=== PATIENT | female | born 1950 | race Caucasian/White ===

== ENCOUNTER 2016-12-18 18:19 | Inpatient (IN) | payer OTHER ==
[~2016-12-18] VITALS: Ht 161.3 cm; Wt 95.8 kg
[2016-12-18 18:45] VITALS: BP 153/99; PULSE 100; RESP 42; O2SAT 100
[2016-12-18] MEDS ORDERED: 0.9% Sodium Chloride 1,000 ML IV ONE (18:47)
[2016-12-18] MEDS ORDERED: HYDROmorphone 1 mg/mL Inj IVPUSH ONE ×3 (18:50→21:35)
--- NOTE | 2016-12-18 18:50 | ED.REPORT ---
HPI-General Illness Date of Service Dec 18, 2016 ED Provider: Darien Blackburn MD Pt is a 66 y/o female w/ a hx of breast CA s/p recent double mastectomy and reconstruction, hyperlipidemia, presenting to the ED via EMS c/o severe abdominal pain onset about 1 hour prior to arrival. The patient had a double mastectomy November 23 followed by a total reconstructive surgery on December 13 performed at by plastic surgeon Dr. Mcdowell. Yesterday, she tripped over a curb and was experiencing no pain afterwards. Her friends saw her this morning and were concerned about her and brought her to ED for evaluation. She was subsequently discharged. She slept most of the day and woke up with a sore throat and cough. Her forceful cough caused her a snapping/tearing sensation of her left abdomen with radiation to the back followed by persistent severe abdominal pain, nausea, and pleuritic pain. She denies CP, SOB, vomiting, fever , chills. She was given 100 mcg Fentanyl by EMS with no relief. She has no history of DVT or PE. She is prescribed Lovenox but has not started it yet. Nursing Notes Stated Complaint: ABDOMINAL PAIN Chief Complaint: Female Abdominal Pain Nursing Notes Reviewed: Yes Allergies: Coded Allergies: No Known Allergies (Unverified Allergy, Unknown, 09/05/14) General Time Seen by MD: 18:46 Chief Complaint Abdominal pain Hx Obtained From: Patient, EMS Arrived By: Ambulance Sudden in Onset?: Yes Onset Occurred: 1 - 4 hours ago Symptom Duration: Since onset Location: : Abdomen Quality: Painful Severity: Current: Severe Severity: Maximum: Severe Past Medical History Past Medical History Breast cancer s/p double mastectomy Polymyalgia Reports: Hyperlipidemia Past Surgical History Bilateral meniscus repair on knees Shoulder and back surgery Double mastectomy Breast reconstructive surgery Family History Mother had cancer Father had kidney disease Reports: Diabetes mellitus Smoking History Never Smoker Social History Alcohol Use: "Social" Occupation Patient is a [employer] Frequent Browser Ambulatory Status Independent Review of Systems Full Review of Systems Constitutional: Denies: Chills, Fever Ears / Nose / Throat: Reports: Sore throat Respiratory: Reports: Non-productive cough, Pleuritic pain, Denies: Shortness of breath GI: Reports: Abdominal pain, Nausea, Denies: Constipation, Diarrhea, Vomiting Complete sys rev & neg: except as marked. Physical Exam Vital Signs Vital Signs Date Time Temp Pulse Resp B/P Pulse Ox O2 Delivery O2 Flow Rate FiO2 12/18/16 21:45 101 12 126/62 98 Nasal Cannula 2 12/18/16 19:45 36.6 103 17 140/79 96 Nasal Cannula 2 12/18/16 18:45 35.8 100 42 153/99 100 Nasal Cannula Initial VS: Reviewed, Vital signs abnormal Head / Eyes: Atraumatic, Normocephalic, PERRL ENT: Mucous membranes moist, Conjunctiva normal, No scleral icterus Neurologic: Alert, Oriented, Nonfocal Psychiatric: Mood/affect normal, Behavior normal, Normal thought content General/Constitutional: Awake, Alert Distress / Hydration: Positive: Distress moderate Behavior: Positive: Anxious Respiratory / Chest: No rales, No rhonchi, No wheezing, No stridor, No chest wall deformity, No crepitus Tachypneic in the setting of anxiety O2 sat 100% on RA Diffuse chest tenderness Cardiovascular: Regular rhythm, Heart sounds NL, No gallop, No murmurs, No rubs , Cap refill not delayed, Peripheral circulation NL Heart Rate / Rhythm: Positive: Tachycardia Abdomen: Atraumatic, Soft, No guarding, No rebound, No distention Diffuse abdominal tenderness Skin: Atraumatic, Color NL, Dry Extremities cool to touch Healing bilateral breast reconstruction scars as well as healing lower transverse tummy tuck incision, drains present in each incision spot as well as about the lower abdominal incision with clear serosanguinous fluid with no purulence noted Interpretation & Diagnostics Lab Results Interpretation Result Diagram: 12/18/16190112/18/16 190 Test 12/18/16 19:02 12/18/16 19:33 White Blood Count 12.2th/mm3 (3.8-10.1) Red Blood Count 3.45mil/mm3 (3.90-5.20) Hemoglobin 9.7g/dL (12.0-15.6) Hematocrit 30.7% (35.0-46.0) Mean Corpuscular Volume 89.0fL (81-100) Mean Corpuscular Hemoglobin 28.1pg (27.0-35.0) Mean Corpuscular Hemoglobin Concent 31.6% (32.0-37.0) Red Cell Distribution Width 13.7% (12.3-15.4) Platelet Count 332bil/L (150-400) Neutrophils (%) (Auto) 57.7% (40-74) Lymphocytes (%) (Auto) 25.6% (14-46) Monocytes (%) (Auto) 6.9% (4-12) Eosinophils (%) (Auto) 8.4% (0-5) Basophils (%) (Auto) 0.3% (0-3) Prothrombin Time 10.1sec (8.1-12.5) Prothromb Time International Ratio 0.95ratio Sodium Level 143mEq/L (134-144) Potassium Level 3.5mEq/L (3.5-5.2) Chloride Level 103mEq/L (97-108) Carbon Dioxide Level 24mmol/L (18-29) Blood Urea Nitrogen 18mg/dL (8-27) Creatinine 0.58mg/dL (0.57-1.00) Estimat Glomerular Filtration Rate 150mL/min (>59) Glucose Level 127mg/dL (60-99) Lactic Acid Level 2.1mmol/L (0.4-2.0) Calcium Level 9.4mg/dL (8.5-10.1) Total Bilirubin 0.5mg/dL (0.0-1.2) Aspartate Amino Transf (AST/SGOT) 23U/L (0-50) Alanine Aminotransferase (ALT/SGPT) 15U/L (0-32) Alkaline Phosphatase 49U/L (25-165) Troponin T < 0.010ug/L (0.0-0.011) Pro-B-Type Natriuretic Peptide 76.36pg/mL (0-287) Total Protein 6.2g/dL (6.4-8.4) Albumin 3.5g/dL (3.4-5.0) Urine Color Yellow (YELLOW) Urine Appearance Hazy (CLEAR,HAZY) Urine pH 5.5 (5.0-8.0) Urine Specific [place] 1.027 (1.003-1.035) Urine Protein Negativemg/dL (NEG,TRACE) Urine Glucose (UA) Negativemg/dL (NEGATIVE) Urine Ketones Tracemg/dL (NEGATIVE) Urine Occult Blood Moderate (NEGATIVE) Urine Nitrite Negative (NEGATIVE) Urine Bilirubin Negative (NEGATIVE) Urine Urobilinogen Normalmg/dL (NORMAL) Urine Leukocyte Esterase Trace (NEGATIVE) Urine RBC 0-2/hpf (0-2) Urine WBC 6-10/hpf (0-5) Urine Epithelial Cells Moderate/hpf (NONE-MOD) Urine Crystals None seen (NONE SEEN) Urine Bacteria Few/hpf (NONE-FEW) Urine Hyaline Casts None/lpf (NONE) Urine Granular Casts None seen (NONE SEEN) Urine Waxy Casts None seen (NONE SEEN) Urine Red Blood Cell Casts None seen (NONE SEEN) Urine White Blood Cell Casts None seen (NONE SEEN) Urine Mucus None seen (None Seen) Urine Trichomonas None seen (NONE SEEN) Urine Yeast None (NONE SEEN) Urinalysis Comment None Urine Culture Reflexed Indicated ECG Interpretation Time: 19:27 Interpreted by: ED physician Normal ECG Interpretation: Normal ECG w/ rate of... (97), Normal rate, Normal sinus rhythm, No acute ischemic changes, Normal QRS, Normal axis, Normal intervals, Adequate tracing ABG Interpretation ABG Interpretation: DateTimeAnalyzed 19:25:00 -_ pH ____7.578 - 7.350 7.450 pCO2 ___28.6__ -mmHg 35.0 45.0 pO2 ___95.0__ -mmHg 69.0 116 HCO3- ___26.8__ -mmol/L 22.0 26.0 ABE ____5.1__ -mmol/L -2.0 2.0 tHb ____9.4__ -g/dL O2Hb ___96.0__ -% COHb ____1.4__ -% MetHb ____1.1__ -% sO2 ___98.5__ -% FIO2 ___21.0__ -% Drawn By dh - Date/Time Notified____ 19:28:00 -_ Oxygen Device 1 _ROOM AIR - Notified By DH - Notified Whom Bere Oliveira Beck - B 763 -mmHg tO2 ___12.8__ -Vol% Nehemiah test _Positive - Exam Performed by: [facility] pract Exam Interpreted by: ED physician Indication: Respiratory distress X-Ray Chest Interpretation Chest Xray Interpretation: IMPRESSION: No acute process. Dictated by: Viet Appiah M.D. on 12/18/2016 at 19:22 Approved by: Viet Appiah M.D. on 12/18/2016 at 19:23 View: Portable, 1 view Interpretation / Wet Read by: Interpret - Radiologist CT Chest Interpretation IMPRESSION: 1. Subcutaneous emphysema and pneumomediastinum. Findings discussed with Dr. Blackburn on .2.17 and 2105 hrs. 2. No pulmonary embolus. 3. Thyroid nodule. 4. Small hiatal hernia. Dictated by: Viet Appiah M.D. on 12/18/2016 at 21:05 Approved by: Viet Appiah M.D. on 12/18/2016 at 21:11 Study type: CT pulm angiogram Interpretation / Wet Read by: Interpret - Radiologist, Discussed w radiologist Re-Eval/Medical Decision Med Decision/Clinical Course Pt is a 66 y/o female w/ a hx of breast CA s/p recent double mastectomy and reconstruction, hyperlipidemia, presenting to the ED via EMS c/o severe abdominal pain onset about 1 hour prior to arrival. The patient had a double mastectomy November 23 followed by a total reconstructive surgery on December 13 performed at by plastic surgeon Dr. Mcdowell. Yesterday, she tripped over a curb and was experiencing no pain afterwards. Her friends saw her this morning and were concerned about her and brought her to ED for evaluation. She was subsequently discharged. She slept most of the day and woke up with a sore throat and cough. Her forceful cough caused her a snapping/tearing sensation of her left abdomen/chest with radiation to the back followed by persistent severe abdominal pain/chest pain, nausea, and pleuritic chest pain. She denies CP, SOB , vomiting, fever, chills. She was given 100 mcg Fentanyl by EMS with no relief. She has no history of DVT or PE. She is prescribed Lovenox but has not started it yet. Emergency department she is extremely anxious, somewhat tachypnea and nontoxic in appearance. Her initial presentation is concerning for spontaneous pneumothorax or pulmonary embolism. Chest x-ray demonstrate no focal consolidation or obvious pneumothorax. Given the patient's recent surgery I opted to obtain CT angiography of the chest to assess for pulmonary embolism. There is no evidence thereof however she did have evidence of pneumomediastinum which actually fits the clinical picture quite well given that her pain all started in the setting of forceful coughing. CTA chest read as below: 1. Subcutaneous emphysema and pneumomediastinum. Findings discussed with Dr. Blackburn on 12.18.16 and 2105 hrs. 2. No pulmonary embolus. 3. Thyroid nodule. 4. Small hiatal hernia. ABG 19:20: 7.578/29/95.0/26.8/5.1 Labs notable as below: CBC: Leukocytosis of 12.2, HCT of 30 CMP: lactate of 2.1, glucose of 127, otherwise unremarkable Troponin: negative UA: trace leukocytes, 6-10 WBCs, few bacteria, negative nitrites, not entirely convincing for UTI At 20:32: received ED note dated 12/18/16, seen for ground level mechanical fall. Concerned about damage surgical sites. At that time she was not felt to require syncope workup or have any significant head trauma, abdomen was benign, surgical sites were considered to be well perfused without signs of infection, vital signs were normal. She was seen by plastic surgery and was discharged. Discussed findings as above with the patient as well as 6 surgeon educational sign language interpreter Dr. Mojgan Villanueva. This is felt likely unrelated to the patient's recent surgery. Recommend conservative treatment and no intervention at this time. They do not feel that the patient needs to be transferred to the [facility] for management of this condition. They recommend discharge home versus admission here to the hospital for pain management. The patient remained stable and after receiving IV hydromorphone and fluids she reported significant symptomatic improvement though did not feel comfortable being discharged. Patient will be admitted to the hospitalist service for further observation, symptomatic management and reassessment. Transferred in stable condition. From a surgical standpoint and suction drains with moderate amount of serosanguineous fluid. No evidence of acute hemorrhage. Surgical sites appear clean and are healing well. Abdomen benign on examination without any peritonitis or guarding, rigidity. No evidence at this time of acute surgical intra-abdominal process. Time of Eval: 21:27 Re-Evaluation/Progress Note: Pt rechecked. She is no longer tachypneic and is much less anxious. She is in no distress. Her abdominal pain is returning. HR is 110 at rest. Oxygen sat is 100%. Discussed imaging results with patient. Discussed admit vs discharge. She would like to be admitted here for pain management. Consultation #1: Call Returned at: 21:20 Damage Assessor: Agrees with eval, Agrees with plan Note: Case discussed with plastic surgeon educational sign language interpreter for Dr. Mcdowell, Dr. Marifer Sutton. She saw the patient in the ED today and believes she could be discharged if appropriate. Consultation #2: Referral / Consult Name: Leola Donald DO Consulted With: Hospitalist Call Returned at: 21:46 Damage Assessor: Will see patient, Agrees with eval, Agrees with plan, Accepts admit Counseled Regarding: Diagnosis, Lab results, Need for admission Discharge & Departure Primary Impression: Pneumomediastinum Additional Impressions: Abdominal pain Abdominal location: unspecified location Qualified Code: R10.9 - Unspecified abdominal pain History of breast cancer History of breast reconstruction Panic attack Pleuritic chest pain Disposition: ADMITTED TO HOSPITAL Discharge Condition All VS Reviewed: Yes Condition: Stable Referrals: OTHER,PHYSICIAN (PCP) (Family) Crit Care Except Billable Proc Time Spent: 135-164 minutes Services Performed: Patient management by me, Time spent at bedside, Reviewing test results, Reviewing imaging, Discussing patient care, Documentation in record, Time with fam/surrogate Scribe Attestation Portions of this note were transcribed by Sreekanth Anna. I, Dr. Blackburn personally performed the history, physical exam and medical decision-making; I reviewed and confirmed the accuracy of the information in the transcribed note. Signed by Serafin Martinez, 12/18/16 - 1899 Darien Blackburn MD Dec 18, 2016 18:50 SREEKANTH ANNA Dec 18, 2016 18:51
[2016-12-18] MEDS ORDERED: MetoCLOpramide 5 mg/mL 2 mL Inj ONE (19:00)
[2016-12-18] MEDS: MetoCLOpramide 5 mg/mL 2 mL Inj IVPUSH PRN (19:20)
[2016-12-18 19:24] LABS: BASOPHILS % (AUTO) 0.3 % (0-3); EOSINOPHILS % (AUTO) 8.4 % (0-5); MONOCYTES % (AUTO) 6.9 % (4-12); Mean Corpuscular Hemoglobin 28.1 pg (27.0-35.0); NEUTROPHILS % (AUTO) 57.7 % (40-74); Platelet Count 332 bil/L (150-400)
--- NOTE | 2016-12-18 19:24 | DRSVH ---
PROCEDURE: X-RAY CHEST ONE VIEW, PORTABLE ([id number]) INDICATIONS: CP, SOB TECHNIQUE: One view of the chest was acquired. COMPARISON: None. FINDINGS: Surgical changes and devices: Surgical panchito project over the left chest wall and central chest. Lungs and pleura: No pleural effusions or pneumothorax. Lungs are clear. Mediastinum: Mediastinal contours appear normal. Heart size is normal. Bones and chest wall: No suspicious bony lesions. Overlying soft tissues appear unremarkable. IMPRESSION: No acute process. Dictated by: Viet Appiah M.D. on 12/18/2016 at 19:22 Approved by: Viet Appiah M.D. on 12/18/2016 at 19:23
--- NOTE | 2016-12-18 19:29 | ABG ---
DateTimeAnalyzed 19:25:00 -_ pH ____7.578 - 7.350 7.450 pCO2 ___28.6__ -mmHg 35.0 45.0 pO2 ___95.0__ -mmHg 69.0 116 HCO3- ___26.8__ -mmol/L 22.0 26.0 ABE ____5.1__ -mmol/L -2.0 2.0 tHb ____9.4__ -g/dL O2Hb ___96.0__ -% COHb ____1.4__ -% MetHb ____1.1__ -% sO2 ___98.5__ -% FIO2 ___21.0__ -% Drawn By dh - Date/Time Notified____ 19:28:00 -_ Oxygen Device 1 _ROOM AIR - Notified By DH - Notified Whom Dr, [place], [place] - B 763 -mmHg tO2 ___12.8__ -Vol% Nehemiah test _Positive -
[2016-12-18 19:43] LABS: INR 0.95 ratio
[2016-12-18 19:45] VITALS: BP 140/79; PULSE 103; RESP 17; O2SAT 96
[2016-12-18 19:52] LABS: TROPONIN T < 0.010 ug/L (0.0-0.011)
[2016-12-18 20:00] LABS: APPEARANCE,URINE HAZY (CLEAR,HAZY); COLOR,URINE YELLOW (YELLOW); OCCULT BLOOD,URINE MODERATE (NEGATIVE); PH,URINE 5.5 (5.0-8.0); UROBILINOGEN,URINE NORMAL (NORMAL)
--- NOTE | 2016-12-18 21:12 | DRSVH ---
PROCEDURE: CT ANGIO CHEST PULMONARY EMBOLISM ([id number]) INDICATIONS: Shortness of breath, tachypnea, history of recent breast reconstruction surgery. History of recent coughing episode and chest pain. TECHNIQUE: After the administration of intravenous contrast, 2 mm thick sections acquired from the pulmonary api hortencia to the posterior costophrenic angles. 3-dimensional maximum intensity projection (MIP) coronal a nd sagittal reformats were then acquired through the thorax. For radiation dose reduction, the follo wing was used: automated exposure control, adjustment of mA and/or kV according to patient size. COMPARISON: [facility], CR, XR CHEST 1VW (PORTABLE), 12/18/2016, 18:57. FINDINGS: Image quality: Excellent. Pulmonary arteries: Pulmonary arteries are normal in size, and demonstrate no intraluminal filling d efects to suggest central pulmonary embolism. Lungs and pleura: Lungs are clear. No pleural effusions or pneumothorax. Central and peripheral ai rways are patent. Mediastinum: Moderate anterior pneumomediastinum is present. Heart size is normal, without pericardia l effusion. No mediastinal or hilar adenopathy. Thoracic aorta is normal in caliber and enhancement . Esophagus is normal in caliber. There is a small hiatal hernia. Bones and chest wall: Bilateral breast reconstruction has been performed. Surgical drains remain in place. Moderate right and small amount of left chest wall subcutaneous emphysema is present, surround ing the reconstructed breasts. No suspicious bony lesions. Ribs and thoracic spine appear intact thr oughout. Thyroid gland demonstrates a low density nodule within the right lobe posteriorly measuring 16 mm.. No axillary or supraclavicular adenopathy. Abdomen: Visualized upper abdominal solid organs appear normal in the early arterial phase of enhanc ement. IMPRESSION: 1. Subcutaneous emphysema and pneumomediastinum. Findings discussed with Dr. Blackburn on .2.17 and 2105 hrs. 2. No pulmonary embolus. 3. Thyroid nodule. 4. Small hiatal hernia. Dictated by: Viet Appiah M.D. on 12/18/2016 at 21:05 Approved by: Viet Appiah M.D. on 12/18/2016 at 21:11
[2016-12-18 21:45] VITALS: BP 126/62; PULSE 101; RESP 12; O2SAT 98
--- NOTE | 2016-12-18 22:02 | PCM.HPMED ---
Subjective Date of Service Dec 18, 2016 Primary Provider: Admitting Physician: Leola Donald DO Primary Care Physician: Other,Physician Admit Status: From the Emergency Department History of Present Illness: Patient is a 66 y/o female with a history of breast CA s/p recent double mastectomy and reconstruction at the [facility],hypertension, hyperlipidemia, GERD, and depression who presented to the ED via EMS with the complaint of LUQ abdominal pain with radiation to her back and epigastrium that started around 3pm. Associated symptoms include nausea and one episode of vomiting, back pain and pleuritic chest pain. Symptoms aggravated by deep inspiration and without alleviating factors. She endorses a double mastectomy on 11/23/16 followed by a total reconstructive surgery on 12/13/16 performed at by plastic surgeon Dr. Mcdowell. She states that she was seen this morning in [place] for surgical follow up and without abdominal pain at that time. Her follow up was uneventful and she returned home after which she slept most of the day and reports waking with a sore throat and non-productive cough. She states that her abdominal pain was brought on by a forceful cough and was associated with progressive abdominal pain, nausea and pleuritic pain. She denies chest pain, shortness of breath, fever, chills, diarrhea, bloody or dark stool, hematemesis. She reports upper endoscopy approximately 4 years ago that was normal and a negative colonoscopy last year. She has no history of DVT or PE and was prescribed Lovenox but has not started it yet. In the ED she was afebrile with a temperature of 36.6, slightly hypertensive with a BP of 140/79 and tachycardic with a heart rate of 103. SpO2 was 96% on 2L nasal cannula. Labs were significant for a mild leukocytosis (wbc 12.2), anemia with a Hgb/Hct of 9.7/30.7, hyperglycemia with a serum glucose of 127, mildly elevated lactic acid of 2.1 and a negative troponin. UA showing trace leukocytes, 6-10 WBCs, few bacteria, negative nitrites, and sent for culture. CT angio chest revealed subcutaneous emphysema and pneumomediastinum, no pleural effusions or pneumothorax, no pulmonary embolism. Per the ED physician's he reviewed the notes from earlier today which revealed a for benign abdomen and no signs or symptoms of infection. The patient was discussed with the recreation therapist plastic surgeon who evaluated the patient earlier today and felt she could be discharged home. However, due to poor pain control and tachycardia the decision was made to admit the patient under observation for conservative management of pneumomediastinum. Review of Systems: Pertinent positives and negatives as above in history of present illness. Complete review of systems conducted and otherwise negative. Allergies Coded Allergies: No Known Allergies (Unverified Allergy, Unknown, 09/05/14) PMH Breast cancer s/p double mastectomy Polymyalgia Hyperlipidemia Hypertension Depression . Surgical History Cholecystectomy Tonsillectomy Knee arthroscopy, b/l meniscus repair Spinal fusion, lumbar Shoulder surgery Double mastectomy Breast reconstructive surgery . Family History Mother- Diabetes mellitus, cervical cancer, lung cancer Father- Kidney cancer Social History Hx Alcohol Use: Yes (Socially) Hx Substance Use: No Smoking Status: Never Smoker Living Arrangement: with Family Additional Information Patient is a banker for [employer] Exam Vital Signs Vital Sign - Last Date Time Temp Pulse Resp B/P Pulse Ox O2 Delivery O2 Flow Rate FiO2 12/18/16 21:45 101 12 126/62 98 Nasal Cannula 2 12/18/16 19:45 36.6 Exam GENERAL: Alert, oriented x3 female in mild distress secondary to pain, cooperative and communicating appropriately. HEENT: Normocephalic, atraumatic, PERRLA, conjunctiva normal, hearing grossly intact. Oral cavity and pharynx normal. Teeth and gingiva in fair condition. Oral mucosa moist. NECK: Supple, non-tender, no adenopathy, masses, or thyromegaly. LUNGS: Diminished breath sounds, clear to auscultation, no rales, rhonchi, wheezing. Normal respiratory effort, no use of accessory muscles. HEART: RRR with normal S1, S2 without murmur, gallop, or rub heard. BREASTS: s/p recent bilateral reconstruction, surgical incisions well approximated with adequate granulation tissue, scattered ecchymosis, no erythema /purulent discharge. NORMA drain in place w/minimal serosanguineous fluid, diffusely tender, no axillary lymphadenopathy. ABDOMEN: Soft, non-distended, diffusely tender to palpation pat in LUQ, bowel tones present, no masses or organomegaly appreciated. Lower transverse abdominal surgical incision, healing w/o erythema or discharge and right-sided NORMA drain in place. EXTREMITIES: no deformities or significant joint findings. No edema. Peripheral pulses intact. SKIN: normal. NEUROLOGIC: CN II-XII grossly intact. No focal neurologic deficit. Lab and Diagnostics Labs Laboratory Tests Test 12/18/16 19:02 12/18/16 19:33 White Blood Count 12.2th/mm3 (3.8-10.1) Red Blood Count 3.45mil/mm3 (3.90-5.20) Hemoglobin 9.7g/dL (12.0-15.6) Hematocrit 30.7% (35.0-46.0) Mean Corpuscular Volume 89.0fL (81-100) Mean Corpuscular Hemoglobin 28.1pg (27.0-35.0) Mean Corpuscular Hemoglobin Concent 31.6% (32.0-37.0) Red Cell Distribution Width 13.7% (12.3-15.4) Platelet Count 332bil/L (150-400) Neutrophils (%) (Auto) 57.7% (40-74) Lymphocytes (%) (Auto) 25.6% (14-46) Monocytes (%) (Auto) 6.9% (4-12) Eosinophils (%) (Auto) 8.4% (0-5) Basophils (%) (Auto) 0.3% (0-3) Prothrombin Time 10.1sec (8.1-12.5) Prothromb Time International Ratio 0.95ratio Sodium Level 143mEq/L (134-144) Potassium Level 3.5mEq/L (3.5-5.2) Chloride Level 103mEq/L (97-108) Carbon Dioxide Level 24mmol/L (18-29) Blood Urea Nitrogen 18mg/dL (8-27) Creatinine 0.58mg/dL (0.57-1.00) Estimat Glomerular Filtration Rate 150mL/min (>59) Glucose Level 127mg/dL (60-99) Lactic Acid Level 2.1mmol/L (0.4-2.0) Calcium Level 9.4mg/dL (8.5-10.1) Total Bilirubin 0.5mg/dL (0.0-1.2) Aspartate Amino Transf (AST/SGOT) 23U/L (0-50) Alanine Aminotransferase (ALT/SGPT) 15U/L (0-32) Alkaline Phosphatase 49U/L (25-165) Troponin T < 0.010ug/L (0.0-0.011) Pro-B-Type Natriuretic Peptide 76.36pg/mL (0-287) Total Protein 6.2g/dL (6.4-8.4) Albumin 3.5g/dL (3.4-5.0) Urine Color Yellow (YELLOW) Urine Appearance Hazy (CLEAR,HAZY) Urine pH 5.5 (5.0-8.0) Urine Specific [place] 1.027 (1.003-1.035) Urine Protein Negativemg/dL (NEG,TRACE) Urine Glucose (UA) Negativemg/dL (NEGATIVE) Urine Ketones Tracemg/dL (NEGATIVE) Urine Occult Blood Moderate (NEGATIVE) Urine Nitrite Negative (NEGATIVE) Urine Bilirubin Negative (NEGATIVE) Urine Urobilinogen Normalmg/dL (NORMAL) Urine Leukocyte Esterase Trace (NEGATIVE) Urine RBC 0-2/hpf (0-2) Urine WBC 6-10/hpf (0-5) Urine Epithelial Cells Moderate/hpf (NONE-MOD) Urine Crystals None seen (NONE SEEN) Urine Bacteria Few/hpf (NONE-FEW) Urine Hyaline Casts None/lpf (NONE) Urine Granular Casts None seen (NONE SEEN) Urine Waxy Casts None seen (NONE SEEN) Urine Red Blood Cell Casts None seen (NONE SEEN) Urine White Blood Cell Casts None seen (NONE SEEN) Urine Mucus None seen (None Seen) Urine Trichomonas None seen (NONE SEEN) Urine Yeast None (NONE SEEN) Urinalysis Comment None Urine Culture Reflexed Indicated Microbiology 12/18/16 Urine Culture, pending Result Diagram: 12/18/16 1902 12/18/16 1902 X-Rays, CTs and MRIs X-RAY CHEST ONE VIEW, PORTABLE (12/18/16) IMPRESSION: No acute process. Dictated by: Viet Appiah M.D. on 12/18/2016 at 19:22 Approved by: Viet Appiah M.D. on 12/18/2016 at 19:23 CT ANGIO CHEST PULMONARY EMBOLISM (12/18/16) IMPRESSION: 1. Subcutaneous emphysema and pneumomediastinum. Findings discussed with Dr. Blackburn on 12.18.16 and 2105 hrs. 2. No pulmonary embolus. 3. Thyroid nodule. 4. Small hiatal hernia. Dictated by: Viet Appiah M.D. on 12/18/2016 at 21:05 Approved by: Viet Appiah M.D. on 12/18/2016 at 21:11 . 12-lead ECG NSR w/heart rate of 97, no acute ischemic changes. Additional Diagnostics: ABG Interpretation: DateTimeAnalyzed 19:25:00 -_ pH ____7.578 - 7.350 7.450 pCO2 ___28.6__ -mmHg 35.0 45.0 pO2 ___95.0__ -mmHg 69.0 116 HCO3- ___26.8__ -mmol/L 22.0 26.0 ABE ____5.1__ -mmol/L -2.0 2.0 tHb ____9.4__ -g/dL O2Hb ___96.0__ -% COHb ____1.4__ -% MetHb ____1.1__ -% sO2 ___98.5__ -% FIO2 ___21.0__ -% Drawn By dh - Date/Time Notified____ 19:28:00 -_ Oxygen Device 1 _ROOM AIR - Notified By DH - Notified Whom Bere Oliveira Beck - B 763 -mmHg tO2 ___12.8__ -Vol% Nehemiah test _Positive - Assessment & Plan 66 y/o female with a history of breast CA s/p recent double mastectomy and reconstruction at the [facility] who presented to the ED via EMS c /o new onset abdominal pain associated with pleuritic chest pain, nausea and radiating to her back admitted for observation and conservative management after CT angio chest demonstrated subcutaneous emphysema and pneumomediastinum, no pleural effusions or pneumothorax, no pulmonary embolism. 1. Acute pneumomediastinum, present on admission. Active. -Pt is post-operative day #5 from breast reconstructive surgery & post-op day # 25 following double mastectomy. -Pt evaluated at emergency dept by plastic surgeon on-call earlier today and discharged home in stable condition. ED physician spoke with same plastic surgeon who did not feel pneumomediastinum was surgically related and recommended discharge. -May consider GI and pulm consult for further evaluation possible bronch vs EGD -Continue supplemental oxygen -Acetaminophen [id number] PRN -Oxycodone 5-10mg Q6 prn -IV Dilaudid 0.5mg IV q4hr prn for breakthrough pain 2. Abdominal pain, present on admission. Active. -Post-operative day #5 from brodie chaudhary, surgical drain remains in place with minimal serosanguineous fluid. Patient evaluated at emergency dept earlier today with reportedly benign abdominal evaluation. -Surgical incisions are well approximated with adequate granulation tissue and no erythema/purulent drainage. -Clear liquid diet -Consider CT with worsening abdominal pain -CMP in the morning 3. Hx of breast cancer s/p double mastectomy w/ complete reconstruction on , present on admission. Active. -Surgical incisions are well approximated with adequate granulation tissue and no erythema/purulent drainage. Drain in place with minimal serosanguineous fluid. 4. Leukocytosis, unknown chronicity, present on admission. Active. -Patient afebrile, surgical incisions/drains with no signs of infection. WBC slightly elevated on admission at 12.2 without left shift. -Likely acute stress rxn, demargination -CBC in the morning, Blood cx completed 5. Anemia, unknown chronicity, present on admission. Active. -Patient denies known history of anemia. Post-operative day #5 from breast reconstructive surgery at . -Hemodynamically stable with no signs of active bleeding. -Hgb/Hct on admission 9.7/30.7, repeat and in am 6. Tachycardia, present on admission. Improved. -HR low 100s on admission, most likely secondary to pain/anxiety. Improved with rest and pain medication. -Continue pain meds as above. Chronic problems, present on admission, presumed stable: -Hypertension- continue home dosing Lisinopril -Hyperlipidemia- continue home dosing atorvastatin. -Depression- continue home dosing Effexor Patient admitted under observation status with expected length of stay < 2 midnights for severity of present symptoms, complexities of treatment plan and risk for adverse event. Pain Evaluation: Adequate Pain Control GI Prophylaxis: Not indicated VTE Prophylaxis Indicated: Meets Criteria for Anticoag Therapy VTE Prophylaxis: Sub-Q Enoxaparin VTE Mechanical Devices: Intermittant Pneumatic CD Resuscitation Status: CPR: Attempt Resuscitation Attending Statement The patient was seen and examined together with house staff on 12/19/2016 and I agree with the history, exam and plan as outlined in the note above. Monica Garner DO Dec 18, 2016 22:02 Leola Donald DO Dec 19, 2016 00:40
[2016-12-18 22:06] VITALS: BP 119/59; PULSE 105; RESP 12; O2SAT 98
[2016-12-18 22:26] VITALS: BP 132/63; PULSE 100; RESP 21; O2SAT 96
[2016-12-18 22:42] VITALS: BP 149/87; PULSE 104; PULSE 108; RESP 18; O2SAT 100
[2016-12-18] MEDS ORDERED: PANT40TA3 PO (23:01)
[2016-12-18] MEDS ORDERED: LISI40TA PO (23:01)
[2016-12-18] MEDS ORDERED: VENL150T3 PO (23:01)
[2016-12-18] MEDS ORDERED: ATOR40TA69 PO (23:01)
[2016-12-18] MEDS ORDERED: OXYC5TAB72 PO (23:01)
[2016-12-18] MEDS ORDERED: PRD5T PO (23:01)
[2016-12-18] MEDS: Alum-Mag Hydrox-Simeth 30 mL Suspension PO PRN (23:17)
[2016-12-19] VITALS (16 sets, daily range): BP systolic 124–164; BP diastolic 65–90; PULSE 100–122; RESP 18–24; O2SAT 94–100
[2016-12-19] MEDS: Ondansetron 2 mg/mL 2 mL Inj IVPUSH PRN ×5 (00:10→13:30)
[2016-12-19] MEDS: MetoCLOpramide 5 mg/mL 2 mL Inj IVPUSH PRN (01:51)
[2016-12-19] MEDS: HYDROmorphone 0.5 mg/0.5 mL iSecure Syringe IVPUSH PRN ×3 (01:51→10:28)
[2016-12-19] MEDS ORDERED: Lactulose 20 Gm/30 mL 30 mL Syrup PO ONE (05:05)
[2016-12-19 07:10] LABS: BASOPHILS % (AUTO) 0.2 % (0-3); EOSINOPHILS % (AUTO) 0.6 % (0-5); MONOCYTES % (AUTO) 5.9 % (4-12); Mean Corpuscular Hemoglobin 28.3 pg (27.0-35.0); Mean Corpuscular Volume 88.5 fL (81-100); NEUTROPHILS % (AUTO) 83.1 % (40-74); Platelet Count 351 bil/L (150-400)
--- NOTE | 2016-12-19 08:27 | DRSVH ---
PROCEDURE: X-RAY KUB ([id number]) INDICATIONS: abd pain post pls surg TECHNIQUE: One view of the abdomen acquired. COMPARISON: None. FINDINGS: Surgical changes and devices: Surgical clips are present in both breasts, in the right upper quadrant and right lower quadrant/right hemipelvis. Wires and tubing overlying the abdomen and pelvis. Bowel: Dilated small bowel loops measuring up to 4 cm in diameter in the central abdomen. Soft tissues: No suspicious abdominal calcifications. Visualized solid organ contours appear normal in size. Bones: No suspicious bony lesions. IMPRESSION: 1. Dilated small bowel loops are suspect for partial small bowel obstruction. 2. Multiple postoperative changes evident. Dictated by: Refugio Huertas M.D. on 12/19/2016 at 8:23 Approved by: Refugio Huertas M.D. on 12/19/2016 at 8:26
[2016-12-19] MEDS: Heparin 5,000 Unit/mL Inj SUBQ SCH ×3 (10:28→23:37)
[2016-12-19] MEDS: 0.9% Sodium Chloride 1,000 ML IV SCH ×2 (11:51→17:30)
[2016-12-19] MEDS ORDERED: HYDROmorphone 0.5 mg/0.5 mL iSecure Syringe IVPUSH PRN (12:30)
--- NOTE | 2016-12-19 12:35 | PCM.PNMED ---
Subjective Date of Service Dec 19, 2016 Subjective Increased abdomen pain and emesis, dark colored. Minimal chest pain and no dyspnea. No head ache or neck pain. No recent rectal bleeding. Exam Vital Signs Vital Sign - Last Date Time Temp Pulse Resp B/P Pulse Ox O2 Delivery O2 Flow Rate FiO2 12/19/16 10:21 Supplement Oxygen 12/19/16 10:10 36.5 105 18 147/90 98 2.00 Intake and Output 12/18/16 12/18/16 12/19/16 Cumulative From/Thru 15:00 23:00 07:00 12/18/16 18:45 - 12/19/16 06:50 Intake Total 1000 ml 150 ml 1150 ml Output Total 500 ml 1020 ml 1520 ml Balance 500 ml -870 ml -370 ml Intake Oral 150 ml 150 ml IV Total 1000 ml 1000 ml Output Urine Total 500 ml 650 ml 1150 ml Drainage Total 370 ml 370 ml Exam Sedated , uncomfortable. Fluent speech Pale skin Lungs clear Heart regular Abdomen tender, mostly left side No rebound No edema No rash IVs and Medications Medications Reviewed: Medications were reviewed in detail Lab and Diagnostics Result Diagram: 12/19/16 0707 12/19/16 0707 X-Rays, CTs and MRIs X-RAY CHEST ONE VIEW, PORTABLE (12/18/16) IMPRESSION: No acute process. Dictated by: Viet Appiah M.D. on 12/18/2016 at 19:22 Approved by: Viet Appiah M.D. on 12/18/2016 at 19:23 CT ANGIO CHEST PULMONARY EMBOLISM (12/18/16) IMPRESSION: 1. Subcutaneous emphysema and pneumomediastinum. Findings discussed with Dr. Blackburn on 17 and 2105 hrs. 2. No pulmonary embolus. 3. Thyroid nodule. 4. Small hiatal hernia. Dictated by: Viet Appiah M.D. on 12/18/2016 at 21:05 Approved by: Viet Appiah M.D. on 12/18/2016 at 21:11 . 12-lead ECG NSR w/heart rate of 97, no acute ischemic changes. Additional Diagnostics ABG Interpretation: DateTimeAnalyzed 19:25:00 -_ pH ____7.578 - 7.350 7.450 pCO2 ___28.6__ -mmHg 35.0 45.0 pO2 ___95.0__ -mmHg 69.0 116 HCO3- ___26.8__ -mmol/L 22.0 26.0 ABE ____5.1__ -mmol/L -2.0 2.0 tHb ____9.4__ -g/dL O2Hb ___96.0__ -% COHb ____1.4__ -% MetHb ____1.1__ -% sO2 ___98.5__ -% FIO2 ___21.0__ -% Drawn By dh - Date/Time Notified____ 19:28:00 -_ Oxygen Device 1 _ROOM AIR - Notified By DH - Notified Whom Jeff OliveiraMalden, Beck - B 763 -mmHg tO2 ___12.8__ -Vol% Nehemiah test _Positive - Assessment & Plan 66 y/o female with a history of breast CA s/p recent double mastectomy and reconstruction at the [facility] who presented to the ED via EMS c /o new onset abdominal pain associated with pleuritic chest pain, nausea and radiating to her back admitted for observation and conservative management after CT angio chest demonstrated subcutaneous emphysema and pneumomediastinum, no pleural effusions or pneumothorax, no pulmonary embolism. 1. Acute pneumomediastinum, present on admission. Active. -Pt is post-operative day #5 from breast reconstructive surgery & post-op day # 25 following double mastectomy. -Pt evaluated at emergency dept by plastic surgeon on-call earlier today and discharged home in stable condition. ED physician spoke with same plastic surgeon who did not feel pneumomediastinum was surgically related and recommended discharge. -May consider GI and pulm consult for further evaluation possible bronch vs EGD -Continue supplemental oxygen -Acetaminophen [id number] PRN -Oxycodone 5-10mg Q6 prn -IV Dilaudid 0.5mg IV q4hr prn for breakthrough pain Will CT abdomen and pelvis and obtain surgical consult, called at 12:40 PM. 2. Abdominal pain, present on admission. Active. -Post-operative day #5 from brodie chaudhary, surgical drain remains in place with minimal serosanguineous fluid. Patient evaluated at emergency dept earlier today with reportedly benign abdominal evaluation. -Surgical incisions are well approximated with adequate granulation tissue and no erythema/purulent drainage. -Clear liquid diet -Consider CT with worsening abdominal pain -CMP in the morning Air fluid levels and recent TRAM flap. Will obtain surgical consult and CT abdome and pelvis. Will place NGT and suction. R/O perf, SBO. infection. 3. Hx of breast cancer s/p double mastectomy w/ complete reconstruction on , present on admission. Active. -Surgical incisions are well approximated with adequate granulation tissue and no erythema/purulent drainage. Drain in place with minimal serosanguineous fluid. 4. Leukocytosis and lactic acidosis, unknown chronicity, present on admission. Active. -Patient afebrile, surgical incisions/drains with no signs of infection. WBC slightly elevated on admission at 12.2 without left shift. -Likely acute stress rxn, demargination -CBC in the morning, Blood cx completed Serial lactates, IVF (NS at 150/hr), PICC and empiric Zosyn. 5. Anemia, unknown chronicity, present on admission. Active. -Patient denies known history of anemia. Post-operative day #5 from breast reconstructive surgery at . -Hemodynamically stable with no signs of active bleeding. -Hgb/Hct on admission 9.7/30.7, repeat and in am 6. Tachycardia, present on admission. Improved. -HR low 100s on admission, most likely secondary to pain/anxiety. Improved with rest and pain medication. -Continue pain meds as above. Chronic problems, present on admission, presumed stable: -Hypertension- continue home dosing Lisinopril -Hyperlipidemia- continue home dosing atorvastatin. -Depression- continue home dosing Effexor Patient admitted under observation status with expected length of stay < 2 midnights for severity of present symptoms, complexities of treatment plan and risk for adverse event. Pain Evaluation: Adequate Pain Control GI Prophylaxis: Not indicated VTE Prophylaxis: Sub-Q Enoxaparin VTE Mechanical Devices: Intermittant Pneumatic CD Resuscitation Status: CPR: Attempt Resuscitation Time spent 45 min Nehemiah You MD Dec 19, 2016 12:35
[2016-12-19] MEDS ORDERED: Sodium Chloride LOK Flush 10 mL Syringe IVFLUSH PRN (12:45)
--- NOTE | 2016-12-19 13:32 | DRSVH ---
PROCEDURE: X-RAY ABDOMEN WITH ERECT AND/OR DECUBITUS VIEWS ([id number]) INDICATIONS: abdomen pain TECHNIQUE: 2 views of the abdomen were acquired. COMPARISON: [facility], CR, XR KUB, 12/19/2016, 4:23. FINDINGS: Surgical changes and devices: There are multiple surgical clips redemonstrated in the abdomen and pel vis. Surgical clips also demonstrated within the visualized left hemithorax. Bowel: No pneumoperitoneum. There are dilated small bowel loops redemonstrated measuring up to appr oximately 4 cm with air-fluid levels. A paucity of gas is noted distally in the colon. Soft tissues: No suspicious abdominal calcifications. Bones: No suspicious bony abnormalities. IMPRESSION: 1. Dilated small bowel loops with air-fluid levels redemonstrated suspicious for small bowel obstruc tion. 2. No evidence of pneumoperitoneum. Dictated by: Ray Lindquist M.D. on 12/19/2016 at 13:02 Approved by: Ray Lindquist M.D. on 12/19/2016 at 13:30
--- NOTE | 2016-12-19 15:25 | DRSVH ---
PROCEDURE: CT ABDOMEN AND PELVIS WITH CONTRAST ([id number]) INDICATIONS: abdomen pain TECHNIQUE: After the administration of oral and intravenous contrast, 5 mm thick sections acquired from the diap hragms to the symphysis. 5 mm thick coronal and sagittal reformats were performed. For radiation do se reduction, the following was used: automated exposure control, adjustment of mA and/or kV accordi ng to patient size. COMPARISON: CTA chest 12/18/2016. FINDINGS: Image quality: Excellent. ABDOMEN: Lung bases: There is pneumomediastinum in the right anterior region. Subcutaneous emphysema in the ri ght pectoralis and dissecting medial and anterior to the right breast reconstruction. In the lower me diastinum, there is reflux of oral contrast from the stomach into the distal esophagus around the ind welling NG tube. Solid organs: Liver and spleen are normal in size and enhancement. A subcentimeter hypodensity is pr esent in the posterior subcapsular spleen. Gallbladder is surgically absent. Biliary system is non-d ilated. Pancreas enhances normally. No adrenal nodules. Kidneys are normal in size and enhancement , without hydronephrosis. In the anterior upper pole of the left kidney is a complex 1.9 cm cystic ma ss appearing to have a solid component. Peritoneum and bowel: Small bowel dilatation is present up to 3 cm in diameter. Transition appears to correlate with the ne ck of the left ventral hernia. The colon is decompressed, uncomplicated sigmoid diverticulosis. Nodes and vessels: No retroperitoneal or mesenteric adenopathy. Aorta and inferior vena cava are no rmal in caliber. Miscellaneous: There is deformity of the anterior abdominal wall, a large left ventral hernia contain ing loops of non-distended bowel with a right to left subcutaneous catheter extending through the gómez tral margin of the hernia. Postoperative clips over the right anterior abdominal wall. PELVIS: Genitourinary: Bladder is collapsed around a Dickey catheter with a moderate amount of intraluminal a ir present. Uterus appears atrophic with a 1.4 cm hypodense filling defect in the lower uterine segme nt, fibroid versus nabothian cyst. Miscellaneous: No inguinal hernias or adenopathy. Bones: No suspicious bony lesions. No vertebral body compression fractures. IMPRESSION: 1. Postoperative changes of breast reconstruction as previously described. Persistent but improved pn eumomediastinum and subcutaneous air around the right breast reconstruction. Postoperative deformitie s of the anterior bowel wall. 2. Large mouth left lower quadrant ventral hernia containing bowel which appears to be causing partia l small bowel obstruction, possibly associated with torsion. 3. 2 cm mass lesion in the anterior upper pole of the left kidney is of concern for possible renal ce ll carcinoma. CT abdomen with renal protocol suggested when clinically feasible. 4. Status post cholecystectomy. 5. Uncomplicated sigmoid diverticulosis. Findings called to Dr. Bobby You 1515 hrs. on 12/19/2016. Findings also reviewed with Dr. Cuevas in rson. Dictated by: Refugio Huertas M.D. on 12/19/2016 at 14:58 Approved by: Refugio Huertas M.D. on 12/19/2016 at 15:23
--- NOTE | 2016-12-19 15:48 | CONS ---
[address] [address] CONSULTATION REPORT PATIENT: DAYSI HORVATH : 1950 MR#: [id number] ADMIT: 12/18/2016 JOB ID: [id number] DATE OF SERVICE: 12/19/2016 The patient is seen in urgent consultation at the request of Dr. Bryant regarding further evaluation and management of abdominal pain. HISTORY OF PRESENT ILLNESS: The patient is a 66-year-old woman with a history of breast cancer for which she underwent double mastectomy on November 23, followed by a bilateral NADER flap reconstruction, performed by Dr. Mcdowell at the [facility] on December 13, 2016. That procedure was complicated by a pneumothorax which was observed without intervention. The patient was then discharged home a few days ago. Yesterday, the patient tells me that she coughed and then experienced acute onset left lower quadrant abdominal pain. She describes the pain as intense and constant. This prompted her to come to the emergency department where she was found to have a mild leukocytosis of 12.2 and a lactic acid of 2.1. For reasons that are unclear to me, a CT angiogram of the chest was obtained but no scan of the abdomen. This demonstrated subcutaneous emphysema around the flap reconstruction, predominantly on the right side, as well as some pneumomediastinum. The patient was admitted to the hospitalist service and has been monitored overnight. This morning, her white blood cell count has climbed to 13.5, and her lactic acid has also climbed to 2.4. She has become progressively tachycardic currently with a heart rate in the one-teens to 120s. She also complains of intensity of her upper abdominal pain. I was therefore urgently consulted and asked to see her. Because of the patient's pain, she is unable to provide only limited history. I did ask our plastic surgeon, Dr. Stiven Brownlee, to come by and see her, and together we called her plastic surgeon at the [facility], Dr. Mcdowell, and discussed the case. PAST MEDICAL HISTORY: 1. Breast cancer. 2. Polymyalgia. 3. Hyperlipidemia. 4. Hypertension. 5. Depression. PAST SURGICAL HISTORY: 1. Open cholecystectomy in the 1980s. 2. Tonsillectomy. 3. Knee arthroscopy. 4. Spinal fusion. 5. Shoulder surgery. 6. Reconstructive surgery as per HPI. MEDICATIONS: Current medications are reviewed in the computer. ALLERGIES: She has no known drug allergies. FAMILY HISTORY: Family history is reviewed and significant for diabetes, lung cancer, and kidney cancer. SOCIAL HISTORY: She is a never smoker. She lives locally. She occasionally drinks alcohol. REVIEW OF SYSTEMS: Full review of systems is limited due to the patient's pain. However, she suggests that she is having abdominal pain as well as nausea and vomiting but no other new symptoms. She tells me that this all began acutely with the coughing episode yesterday, and prior to that, she was feeling fine. PHYSICAL EXAMINATION: Vital signs: She is currently tachycardic in the 120s. Her blood pressure is okay in 150s to 160s over 80s. Her oxygen saturation is 98% on 2 L nasal cannula. She has a respiratory rate of 18 breaths per minute. In general, she appears uncomfortable and slightly sedated, though arousable. Cardiovascular: She has a regular sinus tachycardia. Pulmonary: Lungs are clear to auscultation bilaterally. Vascular: She has no carotid bruit. Neck: She has no thyromegaly. Chest: Her bilateral flaps are inspected. They appear healthy and viable with good capillary reperfusion. There is a lot of ecchymosis but no erythema and no induration. She has NORMA drains bilaterally, both with clear serous output. Her abdomen is obese and significantly tender, particularly in the left lower quadrant. She has a well-healed cholecystectomy scar which is now in the right mid to lower abdomen. She has a transverse lower abdominal incision which appears intact without erythema. She has bilateral NORMA drains coming out the lateral aspects of this, both with thin, clear, serous fluid. Extremities are warm, without significant edema. Neuro is grossly intact. LABORATORIES: Her white blood cell count this morning is 13.5. Her hematocrit is 32.2. Her platelet count is 351. Her creatinine 0.54, her sodium is 138. Her glucose was 174. Her lactic acid has slowly been climbing, most recently up to 2.4. IMAGING: CT scan of the chest was personally reviewed and demonstrates air, particularly around the right breast flap and some pneumomediastinum, all consistent with her recent history of a bilateral NADER flap reconstruction complicated by pneumothorax. ASSESSMENT AND PLAN: This is a 66-year-old female with a recent breast reconstruction at the [facility] admitted with acute onset abdominal pain with a climbing lactic acidosis. I reviewed the case with our plastic surgeon, Dr. Stiven Brownlee, and we also talked with her primary surgeon down at the [facility]. Initially, I was concerned about the possibility of a necrotizing soft tissue infection, especially one with flaps, given the presence of air. However, after the conversation with the plastic surgeons, I am less concerned about this. Per them, it is not unexpected to have residual air and she did have a dissection for the vascular anastomosis within the mediastinum. Also, the fact that she had a pneumothorax suggests further etiology for ongoing pneumomediastinum and air around the flap. That being said, she continues to have significant abdominal pain, tachycardia, and the lactic acidosis. At this point, I recommend urgent CT scan of the abdomen to assess for the possibility of some kind of fascial tear with a hernia. This seems like the most plausible etiology for her current symptoms. I also recommend immediate initiation of broad-spectrum antibiotics. I will follow up on the CT scan and formulate a plan accordingly.
[2016-12-19] MEDS ORDERED: Lactated Ringer's 1,000 ML IV ONE ×2 (15:50→16:30)
--- NOTE | 2016-12-19 16:47 | PCM.HPANE ---
Patient Data Date of Service: Dec 19, 2016 Surgeon Admitting Provider:Leola Donald DO Attending Provider:Leola Donald DO Primary Care Physician:Other,Physician Other Provider: Reason for Visit Pneumomediastinum Post Op Pain Ht/WT & BMI Height (Feet): 5 Height (Inches): 3.50 Weight (Kilograms): 99.100 Body Mass Index 38.23 Allergies Coded Allergies: No Known Allergies (Unverified Allergy, Unknown, 09/05/14) Past Anesthesia History Anesthesia History: Denies:: Anesthesia Reactions Diabetes History Hx Diabetes?: No MRSA MRSA: No Medications Hypertension Medication: Yes Home Meds Incl Beta King: No Reported Medications Lisinopril 40 Mg [id number] Mg PO DAILY #90 12/18/16 Atorvastatin Calcium 40 Mg [id number] Mg PO HS #45 12/18/[address] 40 Mg Tablet.dr40 Mg PO BID #180 12/18/16 Venlafaxine ER 150 Mg Tab.[id number] Mg PO DAILY #90 12/18/16 Prednisone (PredniSONE)5 Mg Tab5 Mg PO BID #60 12/18/16 oxyCODONE 5 Mg Gmbfrt09 Mg PO QID PRN For Pain #60 12/18/16 History History of ENT Problems?: No Hx of Heart Problems?: Yes Cardiovascular History: Positive for:: Hypertension (takes lisinopril) Denies:: Cardiac Surgery Chest Pain Congestive Heart Failure Edema Heart Murmur Irregular Heartbeat Pacemaker Thrombophlebitis Hx of Respiratory Problem?: No Respiratory History: Denies:: Tuberculosis Hx Neurologic Problems?: No Neurological History: Denies:: Alzheimer's Disease CVA Dementia Dizziness Headaches Parkinson's Disease Seizures Other Neurological Pertinent: reports hx of Polymyalgia Hx of GI Problems?: Yes Gastrointestinal History: Positive for:: Gastroesphageal Reflux Heartburn Denies:: Diverticulitis Gastrointestinal Bleeding Hepatitis Hiatal Hernia Rectal Bleeding Other History/Comment small bowel obstruction Hx of Problems?: No Other History/Comment burroughs present Female Hx: Positive for:: Problems with Breasts? (breast CA with B mastectomy and reconst. on 12/13/16) Denies:: Currently Endometriosis Pelvic Inflammatory Hx Musculoskeletal Problems?: No Hx of Psycho/Social Problems?: Yes Psycho Social History: Positive for:: Anxiety Denies:: Bipolar Disorder Hx Depression Suicide Attempt Hx Surgeries?: Yes Hx Any Other Health Problems?: No Other History: Positive for:: Cancer (breast CA with recent surgery) Hospitalization Denies:: Thyroid Disease History Blood Transfusions: Positive for:: Accept Blood Products? Denies:: Blood Transfuse Reaction Blood Transfusions Hx Diabetes: No Other Pertinent History: Bilateral mastectomy with flap reconstruction 12/13/16 Hx Alcohol Use: Yes (very rarely)Hx Substance Use: No Smoking Status: Never Smoker Stop/Bang Treated for Sleep Apnea?: No Do You Have a CPAP Machine?: No S-Snoring: Do You Snore Loudly: No T-Tired: feel tired, fatigued: No O-Obsered: Observed not breath: No P-Blood Pressure: treated: Yes B- Body Mass Index > 35 kg/m2: Yes A- Age over 50: Yes N- Neck Large Circumference: No G- Gender Male: No ROSHAN Total Score: 3 ROSHAN Risk Assessment: Low Risk, <3 Yes Risk Assessment Category Category 1A: Patient has history of documented sleep apnea, and HAS NOT received any narcotic, sedative or anesthesia administration during this stay. Category 1B: Patient has history of documented sleep apnea, and HAS received any narcotic , sedative or anesthesia administration during this stay Category 2: Patient has SUSPECTED Obstructive Sleep Apnea, and HAS received any narcotic , sedative or anesthesia administration during this stay. Category 3: Patient has SUSPECTED Obstructive Sleep Apnea and HAS NOT received narcotic, sedative or anesthesia administration during this stay. Category 4: Outpatient in Procedural Areas with known sleep apnea or who screen positive for High Risk via the STOP/BANG questionnaire. Exam Exam Vital Signs Vital Signs Date Time Temp Pulse Resp B/P Pulse Ox O2 Delivery O2 Flow Rate FiO2 12/19/16 13:00 Supplement Oxygen 12/19/16 12:52 113 18 164/83 98 Nasal Cannula 2.00 12/19/16 12:27 24 Nasal Cannula 2.50 12/19/16 10:21 Supplement Oxygen 12/19/16 10:10 36.5 105 18 147/90 98 Nasal Cannula 2.00 12/19/16 08:51 119 General Appearance: Severe Distress HEENT/AIRWAY: MP 1 Lungs: Clear to Auscultation Heart: Exam Unremarkable Meds/Labs/Diagnostics Admission Meds Current Medications Sodium Chloride (Normal Saline) 1,000 ml @ 0 mls/hr Q0M ONCE IV Last administered on 12/18/16 19:13; Start 12/18/16 at 18:47; Stop 12/18/16 at 18:49; Status DC Hydromorphone HCl (Dilaudid Inj) 1 mg ONCE ONCE IVPUSH Last administered on 19:12; Start 12/18/16 at 18:50; Stop 12/18/16 at 18:51; Status DC Hydromorphone HCl (Dilaudid Inj) 1 mg ONCE ONCE IVPUSH Last administered on 20:35; Start 12/18/16 at 20:30; Stop 12/18/16 at 20:31; Status DC Hydromorphone HCl (Dilaudid Inj) 1 mg ONCE ONCE IVPUSH Last administered on 23:18; Start 12/18/16 at 21:35; Stop 12/18/16 at 21:36; Status DC Lorazepam (Ativan Inj) 1 mg ONCE ONCE IVPUSH Last administered on 12/19/16 00: 36; Start 12/19/16 at 00:25; Stop 12/19/16 at 00:32; Status DC Lactulose (Cephulac) 10 gm ONCE ONCE PO Last administered on 12/19/16 05:04; Start 12/19/16 at 05:05; Stop 12/19/16 at 05:06; Status DC Heparin Sodium (Porcine) 5000 unit 5,000 unit Q8 SUBQ Last administered on 10:28; Start 12/19/16 at 08:30 Sodium Chloride (Normal Saline) 1,000 ml @ 150 mls/hr Q6H40M IV Last administered on 12/19/16 11:51; Start 12/19/16 at 10:50 Cefazolin Sodium 2 gm 2 gm STK-MED ONCE IVPUSH Last administered on 12/19/16 16 :20; Start 12/19/16 at 16:20; Stop 12/19/16 at 16:41; Status DC Lactated Ringer's (Lr) 1,000 ml @ ud STK-MED ONCE IV Last administered on 15:50; Start 12/19/16 at 15:50; Stop 12/19/16 at 16:40; Status DC Labs Test 12/18/16 19:02 4/2/17 19:33 12/19/16 07:07 12/19/16 11:41 Prothrombin Time 10.1sec (8.1-12.5) Prothromb Time International Ratio 0.95ratio Troponin T < 0.010ug/L (0.0-0.011) Pro-B-Type Natriuretic Peptide 76.36pg/mL (0-287) Urine Color Yellow (YELLOW) Urine Appearance Hazy (CLEAR,HAZY) Urine pH 5.5 (5.0-8.0) Urine Specific Bradley 1.027 (1.003-1.035) Urine Protein Negativemg/dL (NEG,TRACE) Urine Glucose (UA) Negativemg/dL (NEGATIVE) Urine Ketones Tracemg/dL (NEGATIVE) Urine Occult Blood Moderate (NEGATIVE) Urine Nitrite Negative (NEGATIVE) Urine Bilirubin Negative (NEGATIVE) Urine Urobilinogen Normalmg/dL (NORMAL) Urine Leukocyte Esterase Trace (NEGATIVE) Urine RBC 0-2/hpf (0-2) Urine WBC 6-10/hpf (0-5) Urine Epithelial Cells Moderate/hpf (NONE-MOD) Urine Crystals None seen (NONE SEEN) Urine Bacteria Few/hpf (NONE-FEW) Urine Hyaline Casts None/lpf (NONE) Urine Granular Casts None seen (NONE SEEN) Urine Waxy Casts None seen (NONE SEEN) Urine Red Blood Cell Casts None seen (NONE SEEN) Urine White Blood Cell Casts None seen (NONE SEEN) Urine Mucus None seen (None Seen) Urine Trichomonas None seen (NONE SEEN) Urine Yeast None (NONE SEEN) Urinalysis Comment None Urine Culture Reflexed Indicated White Blood Count 13.5th/mm3 (3.8-10.1) Red Blood Count 3.64mil/mm3 (3.90-5.20) Hemoglobin 10.3g/dL (12.0-15.6) Hematocrit 32.2% (35.0-46.0) Mean Corpuscular Volume 88.5fL (81-100) Mean Corpuscular Hemoglobin 28.3pg (27.0-35.0) Mean Corpuscular Hemoglobin Concent 32.0% (32.0-37.0) Red Cell Distribution Width 13.5% (12.3-15.4) Platelet Count 351bil/L (150-400) Neutrophils (%) (Auto) 83.1% (40-74) Lymphocytes (%) (Auto) 9.6% (14-46) Monocytes (%) (Auto) 5.9% (4-12) Eosinophils (%) (Auto) 0.6% (0-5) Basophils (%) (Auto) 0.2% (0-3) Sodium Level 138mEq/L (134-144) Potassium Level 4.7mEq/L (3.5-5.2) Chloride Level 98mEq/L (97-108) Carbon Dioxide Level 24mmol/L (18-29) Blood Urea Nitrogen 13mg/dL (8-27) Creatinine 0.54mg/dL (0.57-1.00) Estimat Glomerular Filtration Rate 163mL/min (>59) Glucose Level 174mg/dL (60-99) Calcium Level 9.0mg/dL (8.5-10.1) Total Bilirubin 0.5mg/dL (0.0-1.2) Aspartate Amino Transf (AST/SGOT) 46U/L (0-50) Alanine Aminotransferase (ALT/SGPT) 24U/L (0-32) Alkaline Phosphatase 55U/L (25-165) Total Protein 6.2g/dL (6.4-8.4) Albumin 3.6g/dL (3.4-5.0) Lactic Acid Level 2.4mmol/L (0.4-2.0) Plan Impression Patient chart reviewed, patient interviewed and anesthestic plan with risks, benefits, and alternatives discussed, and informed consent obtained. NPO Status: 12/18/16 AT MIDNIGHT ASA Physical Status: ASA2 Plus Emergency Anesthetic Plan: GA Bene/Risks/Altern/Consents: Yes HP Complete Prior to Induction: Yes Isael Gonzalez MD Dec 19, 2016 16:47
[2016-12-19] MEDS: Lactated Ringer's 1,000 ML IV SCH ×2 (16:48→19:52)
[2016-12-19] MEDS ORDERED: Lactated Ringer's 500 ML IV PRN ×2 (16:48→18:35)
[2016-12-19] MEDS ORDERED: Dexamethasone 4 mg/mL Inj IVPUSH PRN ×2 (16:50→18:35)
[2016-12-19] MEDS ORDERED: EPHEDrine Sulfate 50 mg/mL Inj IVPUSH PRN ×2 (16:50→18:35)
[2016-12-19] MEDS ORDERED: Phenylephrine 10,000 mCg/mL Inj IVPUSH PRN ×2 (16:50→18:35)
[2016-12-19] MEDS: Piperacillin-Tazo 3.375 Gm Inj 3.375 GM in Dextrose 5% Minibag Plus 50 ML IV SCH ×2 (17:49→23:37)
[2016-12-19] MEDS ORDERED: HYDROmorphone 1 mg/mL Inj IVPUSH PRN (18:35)
[2016-12-19] MEDS ORDERED: Lactated Ringer's 1,000 ML IV SCH (18:35)
[2016-12-19] MEDS ORDERED: MetoCLOpramide 5 mg/mL 2 mL Inj IVPUSH PRN (18:35)
[2016-12-19] MEDS ORDERED: fentaNYL-PF 50 mCg/mL 2 mL Inj IVPUSH PRN (18:35)
[2016-12-19] MEDS ORDERED: Ondansetron 2 mg/mL 2 mL Inj IVPUSH PRN (18:35)
--- NOTE | 2016-12-19 18:40 | PCM.ANEP1 ---
Post Anesthesia Phase 1 PACU Phase 1 Assessment Date of Service: Dec 19, 2016 Vital Signs Vital Signs Date Time Temp Pulse Resp B/P Pulse Ox O2 Delivery O2 Flow Rate FiO2 12/19/16 18:09 36.8 121 19 124/69 94 Nasal Cannula 5 12/19/16 13:00 Supplement Oxygen 12/19/16 12:52 113 18 164/83 98 Nasal Cannula 2.00 12/19/16 12:27 24 Nasal Cannula 2.50 Anesthetic Administered: GA Pain: Yes Pain Scale Score: 9 Nausea or Vomiting: No Oxygen Delivery: Nasal Cannula Lungs: Clear to Auscultation Isael Gonzalez MD Dec 19, 2016 18:40
--- NOTE | 2016-12-19 18:41 | PCM.ANEP2 ---
Post Anesthesia Evaluation ASA/CMS Post Anesthesia VS in Patient's Normal Range?: Yes Resp Stable; Airway Patent?: Yes CV Function & Hydration Stable: Yes Mental Status Recovered?: Yes Pain control Satisfactory?: Yes N/V Control Satisfactory?: Yes Isael Gonzalez MD Dec 19, 2016 18:41
--- NOTE | 2016-12-19 19:03 | DRSVH ---
PROCEDURE: X-RAY CHEST ONE VIEW, PORTABLE ([id number]) INDICATIONS: CENTRAL LINE AND NG TUBE PLACEMENT TECHNIQUE: One view of the chest was acquired. COMPARISON: None. FINDINGS: Surgical changes and devices: There is a central line from a right internal jugular approach. Tip is likely just into the right atr ium. It is difficult to identify specifically. There is an NG tube into the stomach. Side hole is difficult to identify. It is likely to be at the G E junction. There are used equipment sales representative leads over the chest. There are multiple vascular clips in the chest or breast tissue bilaterally. There vascular clips in the gallbladder bed. Lungs and pleura: No pleural effusions or pneumothorax. Compared to the previous film of 12/18/16 the current film is more lordotic. Despite this there is suggestion of increased markings in the lower zoltan ng jackson bilaterally. This could be atelectasis as most likely causes are less likely developing inf iltrates. Mediastinum: Mediastinal contours appear normal. Heart size is normal. Bones and chest wall: No suspicious bony lesions. Overlying soft tissues appear unremarkable. IMPRESSION: 1. Right internal jugular central line tip probably just into the right atrium. It is is potentially at the right atrium caval junction. 2. NG tube with sidehole probably at the GE junction. Advancing this 10 cm would probably be benefici al. 3. Probable developing subsegmental atelectasis versus infiltrates in the lower lung jackson. 4. Bilateral vascular clips in the chest or breasts bilaterally. Dictated by: Yovani Ruffin M.D. on 12/19/2016 at 18:57 Approved by: Yovani Ruffin M.D. on 12/19/2016 at 19:02
[2016-12-19] MEDS ORDERED: Acetaminophen IV 1,000 MG in IV Premix 1 EACH IV SCH (19:30)
[2016-12-19] MEDS: Dextrose 5% Lactated Ringer's 1,000 ML IV SCH (19:55)
[2016-12-19 20:51] LABS: Mean Corpuscular Hemoglobin 27.7 pg (27.0-35.0)
[2016-12-20] VITALS (9 sets, daily range): BP systolic 113–129; BP diastolic 61–82; PULSE 102–116; RESP 12–20; O2SAT 95–100
--- NOTE | 2016-12-20 01:03 | OP ---
[address] [address] OPERATIVE REPORT PATIENT: DAYSI HORVATH : 1950 MR#: [id number] ADMIT: 12/18/2016 JOB ID: [id number] DATE OF SURGERY: 12/19/2016 ANESTHESIA: General. PREOPERATIVE DIAGNOSIS(ES): Ventral incisional hernia with incarcerated and possibly strangulated small bowel. POSTOPERATIVE DIAGNOSIS(ES): Ventral incisional hernia with incarcerated small bowel. OPERATION: Exploratory laparotomy with reduction of incarcerated bowel and repair of hernia using Strattice mesh. SURGEON: Mikie Cuevas MD. SPA ASSOCIATE: 1. Omid Ibarra PA-C. 2. HYACINTH Clements. COMPLICATIONS: None. ESTIMATED BLOOD LOSS: Less than 5 mL. CONDITION: Satisfactory. SPECIMEN: None. FINDINGS: As demonstrated on the preoperative CT there was an approximately 5 cm fascial defect at the midline with dilated loops of small bowel incarcerated into the subcutaneous space. The intestine was ischemic and edematous, but ultimately viable. Because of the edema and because of the tension to obtain primary repair, a piece of Strattice was used to bridge the fascial defect. INDICATION/SIGNIFICANT HISTORY: The patient is a 66-year-old female who 6-7 days ago underwent bilateral breast reconstruction using NADER flaps at the [facility]. Yesterday, she coughed and developed acute onset of left lower quadrant abdominal pain. She presented to our emergency department and was admitted last night to the hospitalist service. I was consulted due to climbing lactic acid and tachycardia, as well as worsening abdominal pain. The patient is quite obese and it was difficult to appreciate whether or not there was a hernia on exam. A stat CT was obtained which confirmed hernia with incarcerated loop of small bowel. OPERATIVE TECHNIQUE: The patient was taken to the operating room and placed in supine position. General anesthesia was administered. Preoperative antibiotics given. The abdomen was prepped and draped in standard surgical fashion. A procedure pause was performed. The patient had a transverse lower midline incision from flap reconstruction. I elected to go through the midline with a moderate-sized periumbilical incision. After opening the subcutaneous tissue, a loop of small bowel was immediately encountered. This was brought through the incision. It was purple and edematous but it immediately began to pink up. I gently tried to reduce this through the fascia defect but was unable to. I; therefore, extended the fascial defect superiorly several centimeters. I was then able to reduce the loop of bowel. The fascial defect appeared to be at or just off the midline on the left side. The posterior rectus sheath was quite attenuated. I tried to bring this to the midline but it was obvious that there was going to be too much tension. She had a drain placed in the subcutaneous space which was placed at her original surgery six days ago. This is visible through my midline incision. I did not feel it prudent to place permanent mesh given the presence of this indwelling drain, as well as the fact that she has had that loop of small bowel in that space. I; therefore, elected to bridge the fascial defect with a piece of Strattice. A 10 x 16 cm Strattice mesh was trimmed to the appropriate size. This was then sutured in place in a clockwise fashion using 0 Prolene mattress sutures so that the Strattice lies in an underlay fashion. The result was a nice tension-free closure of the fascial defect. The umbilicus looked compromised; and therefore, this was excised. The midline was then closed using panchito. The entire procedure was well tolerated without evident complication.
[2016-12-20] MEDS: Acetaminophen IV 1,000 MG in IV Premix 1 EACH IV SCH ×3 (03:35→14:30)
[2016-12-20 04:16] LABS: BASOPHILS % (AUTO) 0.1 % (0-3); EOSINOPHILS % (AUTO) 2.7 % (0-5); MONOCYTES % (AUTO) 9.2 % (4-12); Mean Corpuscular Hemoglobin 27.9 pg (27.0-35.0); Mean Corpuscular Volume 88.5 fL (81-100); NEUTROPHILS % (AUTO) 69.7 % (40-74); Platelet Count 355 bil/L (150-400)
[2016-12-20] MEDS ORDERED: 0.9% Sodium Chloride 0 ML ONE (07:22)
[2016-12-20] MEDS: Piperacillin-Tazo 3.375 Gm Inj 3.375 GM in Dextrose 5% Minibag Plus 50 ML IV SCH ×2 (07:47→16:41)
[2016-12-20] MEDS: Heparin 5,000 Unit/mL Inj SUBQ SCH ×2 (07:47→16:42)
--- NOTE | 2016-12-20 07:47 | PCM.PNMED ---
Subjective Date of Service Dec 20, 2016 Subjective She is doing well post operatively. No nausea. Ongoing incisional abdomen pain. No chest pain or dyspnea. Some sedation. Exam Vital Signs Vital Sign - Last Date Time Temp Pulse Resp B/P Pulse Ox O2 Delivery O2 Flow Rate FiO2 12/20/16 03:42 37.0 116 20 113/69 99 Nasal Cannula 2.00 Intake and Output 12/19/16 12/19/16 12/20/16 Cumulative From/Thru 15:00 23:00 07:00 12/18/16 18:45 - 12/20/16 05:19 Intake Total 1650 ml 1203 ml 4003 ml Output Total 2315 ml 900 ml 4735 ml Balance -665 ml 303 ml -732 ml Intake Oral 0 ml 150 ml IV Total 1650 ml 1203 ml 3853 ml Output Urine Total 890 ml 560 ml 2600 ml Gastric Drainage Total 580 ml 100 ml 680 ml Emesis 0 ml 0 ml Drainage Total 845 ml 240 ml 1455 ml # Bowel Movements 0 0 Exam Alert and oriented x 3, fluent speech . No distress. Anicteric sclera Lungs clear with normal effort heart regular without murmur Abdomen distended, somewhat tender. N leg edema No rash IVs and Medications Medications Reviewed: Medications were reviewed in detail Lab and Diagnostics Result Diagram: 12/20/16 0405 12/20/16 0405 X-Rays, CTs and MRIs X-RAY CHEST ONE VIEW, PORTABLE (12/18/16) IMPRESSION: No acute process. Dictated by: Viet Appiah M.D. on 12/18/2016 at 19:22 Approved by: Viet Appiah M.D. on 12/18/2016 at 19:23 CT ANGIO CHEST PULMONARY EMBOLISM (12/18/16) IMPRESSION: 1. Subcutaneous emphysema and pneumomediastinum. Findings discussed with Dr. Blackburn on 17 and 2105 hrs. 2. No pulmonary embolus. 3. Thyroid nodule. 4. Small hiatal hernia. Dictated by: Viet Appiah M.D. on 12/18/2016 at 21:05 Approved by: Viet Appiah M.D. on 12/18/2016 at 21:11 . 12-lead ECG NSR w/heart rate of 97, no acute ischemic changes. Additional Diagnostics ABG Interpretation: DateTimeAnalyzed 19:25:00 -_ pH ____7.578 - 7.350 7.450 pCO2 ___28.6__ -mmHg 35.0 45.0 pO2 ___95.0__ -mmHg 69.0 116 HCO3- ___26.8__ -mmol/L 22.0 26.0 ABE ____5.1__ -mmol/L -2.0 2.0 tHb ____9.4__ -g/dL O2Hb ___96.0__ -% COHb ____1.4__ -% MetHb ____1.1__ -% sO2 ___98.5__ -% FIO2 ___21.0__ -% Drawn By dh - Date/Time Notified____ 19:28:00 -_ Oxygen Device 1 _ROOM AIR - Notified By DH - Notified Whom Bere Oliveira Beck - B 763 -mmHg tO2 ___12.8__ -Vol% Nehemiah test _Positive - Assessment & Plan 66 y/o female with a history of breast CA s/p recent double mastectomy and reconstruction at the [facility] who presented to the ED via EMS c /o new onset abdominal pain associated with pleuritic chest pain, nausea and radiating to her back admitted for observation and conservative management after CT angio chest demonstrated subcutaneous emphysema and pneumomediastinum, no pleural effusions or pneumothorax, no pulmonary embolism. #. POD 1 SBO from incarcerated ventral hernia, released with hernia repair. IVF , analgesia, diet advance per surgery. #. Acute pneumomediastinum, present on admission. Active. -Pt is post-operative day #5 from breast reconstructive surgery & post-op day # 25 following double mastectomy. This is residual air from a known previous surgical pneumonthorax. #. Lactic acidosis, POA. Resolved with surgery and IVF. #. Hx of breast cancer s/p double mastectomy w/ complete reconstruction on 12/13, present on admission. Active. -Surgical incisions are well approximated with adequate granulation tissue and no erythema/purulent drainage. Drain in place with minimal serosanguineous fluid. 5. Anemia, unknown chronicity, present on admission. Active. -Patient denies known history of anemia. Post-operative day #5 from breast reconstructive surgery at . -Hemodynamically stable with no signs of active bleeding. -Hgb/Hct on admission 9.7/30.7, repeat and in am Stable, follow. #. -Hypertension- continue home dosing Lisinopril when able. -Hyperlipidemia- continue home dosing atorvastatin. -Depression- continue home dosing Effexor Patient admitted under observation status with expected length of stay < 2 midnights for severity of present symptoms, complexities of treatment plan and risk for adverse event. Pain Evaluation: Adequate Pain Control GI Prophylaxis: Not indicated VTE Prophylaxis: Sub-Q Enoxaparin VTE Mechanical Devices: Intermittant Pneumatic CD Resuscitation Status: CPR: Attempt Resuscitation Time spent 30 min Nehemiah You MD Dec 20, 2016 07:47
[2016-12-20] MEDS: Dextrose 5% Lactated Ringer's 1,000 ML IV SCH ×2 (08:33→19:48)
--- NOTE | 2016-12-20 10:11 | DRSVH ---
PROCEDURE: X-RAY CHEST ONE VIEW, PORTABLE ([id number]) INDICATIONS: line placement TECHNIQUE: One view of the chest was acquired. COMPARISON: 12/18/2016 FINDINGS: Surgical changes and devices: Surgical clips over the midline and both breasts. Bilateral soft tissue drains present in both breasts. Nasogastric tube with tip directed distally in the stomach. Right IJ central venous line tip projecting over the right atrium.. Lungs and pleura: No pleural effusions or pneumothorax. Lungs are clear. Elevation right hemidiaphr agm. Mediastinum: Mediastinal contours appear normal. Heart size is normal. Bones and chest wall: No suspicious bony lesions. Overlying soft tissues appear unremarkable. IMPRESSION: 1. No pneumothorax or acute cardiopulmonary abnormality. 2. Previous postoperative changes both breasts with clips and drain tubes. 3. Central venous line appears to overlie the right atrium. 4. Nasogastric tube in position. Dictated by: Refugio Huertas M.D. on 12/20/2016 at 10:03 Approved by: Refugio Huertas M.D. on 12/20/2016 at 10:10
--- NOTE | 2016-12-20 10:28 | PROG NOTE ---
[address] [address] PROGRESS NOTE PATIENT: DAYSI HORVATH : 1950 MR#: [id number] ADMIT: 12/18/2016 JOB ID: [id number] DATE: 12/20/2016 SUBJECTIVE: The patient is seen postoperative day one from her exploratory laparotomy with reduction of incarcerated hernia and repair with bridging biologic mesh. The patient had a relatively uneventful night. She tells me this morning she feels like she was hit by a bus but her abdominal pain is significantly better compared to prior to surgery. She has remained afebrile. She is tachycardic in the 110s this morning. She is down from the 120s yesterday. Her blood pressure is normal range. She is alert and oriented. She appears mildly uncomfortable. Her abdomen is soft, tender in the left abdomen but far less so than prior to surgery. Her dressing is clean, dry, and intact. Her NORMA drains have serous output. Her NG tube put out 550 yesterday with additional 100 overnight. Her NORMA drains have put out a total of 1.2 L with a total of 240 overnight. LABORATORY STUDIES: Her white blood cell count has normalized this morning down from 12.2 yesterday to 10. Her hematocrit is 28.6. Her creatinine is normal at 0.59. Her lactic acid has normalized down from 2.3 to 0.9 this morning. ASSESSMENT AND PLAN: This is a 66-year-old woman a week out from a bilateral NADER flap complicated by a ventral incisional hernia with incarcerated bowel with ischemia. Overall the patient is doing fine. I have removed her NG tube. I have cautioned go very slow on the diet and just have sips. She can have some oral medications. I will not at all be surprised if she has an ileus. It would be a good idea to get physical therapy involved to get her mobilized. I will continue to follow along. SETHD
[2016-12-20] MEDS: HYDROmorphone 1 mg/mL Inj IVPUSH PRN ×3 (11:17→19:43)
[2016-12-20] MEDS ORDERED: Neostigmine 1 mg/mL 10 mL Inj ONE (12:56)
[2016-12-20] MEDS ORDERED: Ondansetron 2 mg/mL 2 mL Inj ONE (12:56)
[2016-12-20] MEDS ORDERED: Rocuronium 10 mg/mL 5 mL Inj ONE (12:56)
[2016-12-20] MEDS ORDERED: Phenylephrine/NS 100 mCg/mL 10 mL Syringe IVPUSH ONE (12:56)
[2016-12-20] MEDS ORDERED: fentaNYL-PF 50 mCg/mL 2 mL Inj ONE (12:56)
[2016-12-20] MEDS ORDERED: Propofol 10,000 mCg/mL 20 mL Inj ONE (12:56)
[2016-12-20] MEDS ORDERED: Succinylcholine Chloride 20 mg/mL 5 mL Inj ONE (12:56)
[2016-12-20] MEDS ORDERED: Glycopyrrolate 0.2 MG/ML 1mL Inj ONE (12:56)
[2016-12-20] MEDS ORDERED: Sodium Chloride LOK Flush 10 mL Syringe IVFLUSH PRN ×2 (14:30)
--- NOTE | 2016-12-20 15:05 | DRSVH ---
PROCEDURE: X-RAY CHEST ONE VIEW ([id number]) INDICATIONS: Catheter tip placement TECHNIQUE: One view of the chest was acquired. COMPARISON: 12/20/20166573-[address]695 hrs. FINDINGS: Surgical changes and devices: Right IJ central venous line again noted, tip has been withdrawn and is now at the atrial caval junction. Cholecystectomy clips. Surgical clips overlying the mid chest and both breasts. Lungs and pleura: No pleural effusions or pneumothorax. Lungs are clear, diminished atelectasis at the left base medially.. Mediastinum: Mediastinal contours appear normal. Heart size is normal. Bones and chest wall: No suspicious bony lesions. Overlying soft tissues appear unremarkable. IMPRESSION: 1. Repositioning of the central venous line, tip now at the atriocaval junction. Dictated by: Refugio Huertas M.D. on 12/20/2016 at 15:02 Approved by: Refugio Huertas M.D. on 12/20/2016 at 15:04
[2016-12-20] MEDS: Ondansetron 2 mg/mL 2 mL Inj IVPUSH PRN (16:47)
[2016-12-20] MEDS: Alum-Mag Hydrox-Simeth 30 mL Suspension PO PRN (20:10)
[2016-12-21] VITALS (7 sets, daily range): BP systolic 98–138; BP diastolic 59–78; PULSE 100–124; RESP 16–18; O2SAT 91–99
[2016-12-21] MEDS: Piperacillin-Tazo 3.375 Gm Inj 3.375 GM in Dextrose 5% Minibag Plus 50 ML IV SCH ×3 (00:25→16:37)
[2016-12-21] MEDS: Heparin 5,000 Unit/mL Inj SUBQ SCH ×3 (00:25→16:36)
[2016-12-21] MEDS: HYDROmorphone 1 mg/mL Inj IVPUSH PRN ×6 (00:30→21:33)
[2016-12-21] MEDS: Pantoprazole 4 mg/mL 10 mL Inj IVPUSH SCH (07:44)
[2016-12-21 08:19] LABS: BASOPHILS % (AUTO) 0.2 % (0-3); EOSINOPHILS % (AUTO) 7.1 % (0-5); MONOCYTES % (AUTO) 9.1 % (4-12); Mean Corpuscular Hemoglobin 27.8 pg (27.0-35.0); Mean Corpuscular Volume 90.4 fL (81-100); NEUTROPHILS % (AUTO) 63.7 % (40-74); Platelet Count 344 bil/L (150-400)
[2016-12-21] MEDS: Dextrose 5% Lactated Ringer's 1,000 ML IV SCH ×2 (09:13→21:32)
--- NOTE | 2016-12-21 09:40 | PROG NOTE ---
[address] [address] PROGRESS NOTE PATIENT: DAYSI HORVATH : 1950 MR#: [id number] ADMIT: 12/18/2016 JOB ID: [id number] DATE: 12/21/2016 SUBJECTIVE: The patient is seen postoperative day two from her exploratory laparotomy with reduction of incarcerated bowel and temporizing repair of ventral incisional hernia. This morning the patient tells me that she continues to make progress in terms of the way she is feeling. She states that although she continues to have abdominal pain it is improved compared to yesterday and significantly better than preoperatively. She has remained afebrile over the last 24 hours. However, she has a climbing tachycardia now in the 120s. Her blood pressure is 103/65. She is satting 93% on 1 L nasal cannula. She has a respiratory rate of 16 breaths per minute. In general, she appears a little more comfortable than yesterday. She is alert and oriented. Her abdomen is soft, mildly distended. She continues to have pain, particularly on that left side. There is a wedge of skin between her flap incision, the incision I made, and an old cholecystectomy incision on the right side that is somewhat ischemic appearing. It is a little dusky though it does have good cap refill. She is sensate there and denies any pain. Incisions otherwise looks unremarkable. Her NORMA drain has serous output. Her white blood cell count has jumped today from 10.1 yesterday to 15.1 today. Her hematocrit has gone up a little bit from 28.6 to 31.2. Her platelet count is stable at 344. Her creatinine is 0.71. Overnight she took in 150 of oral input. She had good urine output with 2.4 L yesterday and an additional 788 overnight. Her NORMA drains put out a total of 93 cc with only 45 out of that left lower quadrant compared to 245 the day before. ASSESSMENT AND PLAN: This is a 66-year-old woman just over a week out from a bilateral NADER flap reconstruction of her breast complicated by an incisional hernia with incarcerated and strangulated bowel two days out from emergency exploratory laparotomy with reduction of the bowel and repair of the hernia with biologic mesh. Tachycardia and current white count are concerning to me. She had a CT pulmonary angiogram prior to admission which showed no evidence of pulmonary embolism. That is somewhat reassuring. She has been started on prophylactic anticoagulation for DVT prophylaxis. The possibility some of that intestine was not truly viable comes to mind. However, the fact that her abdominal pain is so much better is reassuring. She remains on broad-spectrum antibiotics. Given the current white count, I think we will leave that on for now. If this white count climbs again tomorrow and she has some tachycardia, then she may need a CT scan of her chest, abdomen and pelvis. With respect to that ischemic wedge of skin, it remains sensate and is not painful. I hope that this will be viable. I will probably have Dr. Stiven Brownlee come by and take a look at this.
--- NOTE | 2016-12-21 10:21 | DRSVH ---
PROCEDURE: X-RAY CHEST ONE VIEW, PORTABLE ([id number]) INDICATIONS: 66 year-old female with history of pneumothorax. TECHNIQUE: One view of the chest was acquired. COMPARISON: [facility], CR, XR CHEST 1VW, 12/20/2016, 14:27. [facility], CR, XR CHEST 1VW (PORTABLE), 12/20/2016, 8:43. [facility], CR, XR CHEST 1VW (PORTABLE), 12/19, 18:16. FINDINGS: Surgical changes and devices: Right internal jugular central venous catheter remains in expected posi tion, with tip in the mid superior vena cava. Patient is status post cholecystectomy. Left chest wall surgical clips are again noted. Lungs and pleura: No pleural effusions or pneumothorax. Lungs are clear. Mediastinum: Mediastinal contours appear normal. Heart size is upper normal given AP technique. Bones and chest wall: No suspicious bony lesions. Overlying soft tissues appear unremarkable. IMPRESSION: No acute cardiopulmonary disease. Dictated by: Willie Su M.D. on 12/21/2016 at 10:18 Approved by: Willie Su M.D. on 12/21/2016 at 10:20
--- NOTE | 2016-12-21 12:20 | PCM.PNMED ---
Subjective Date of Service Dec 21, 2016 Subjective Patient seen this morning, with moderate discomfort, rating pain 8-9 at 10 but overall improved from before the surgery. Denies current fever but is tachycardic, no significant new chest pain or shortness of breath. Not passing gas Exam Vital Signs Vital Sign - Last Date Time Temp Pulse Resp B/P Pulse Ox O2 Delivery O2 Flow Rate FiO2 12/21/16 09:12 115 12/21/16 04:41 36.9 16 103/65 93 Nasal Cannula 1.00 Intake and Output 12/20/16 12/20/16 12/21/16 Cumulative From/Thru 14:59 22:59 06:59 12/18/16 18:45 - 12/21/16 06:19 Intake Total 1281 ml 915 ml 6199 ml Output Total 998 ml 543 ml 6276 ml Balance 283 ml 372 ml -77 ml Intake Oral 150 ml 300 ml IV Total 1281 ml 765 ml 5899 ml Output Urine Total 600 ml 450 ml 3650 ml Gastric Drainage Total 220 ml 900 ml Emesis 0 ml Drainage Total 178 ml 93 ml 1726 ml # Bowel Movements 0 0 Exam Alert and oriented x 3, fluent speech . No distress. Anicteric sclera Lungs clear with normal effort heart regular but tachycardic, no significant murmur Abdomen distended, somewhat tender, no rigidity, mild discoloration on right lower abdomen in triangular region, no discharge or bleeding noted N leg edema No rash IVs and Medications Medications Reviewed: Medications were reviewed in detail Lab and Diagnostics Result Diagram: 12/21/16 0815 12/21/16 0815 X-Rays, CTs and MRIs X-RAY CHEST ONE VIEW, PORTABLE (12/18/16) IMPRESSION: No acute process. Dictated by: Viet Appiah M.D. on 12/18/2016 at 19:22 Approved by: Viet Appiah M.D. on 12/18/2016 at 19:23 CT ANGIO CHEST PULMONARY EMBOLISM (12/18/16) IMPRESSION: 1. Subcutaneous emphysema and pneumomediastinum. Findings discussed with Dr. Blackburn on 12.18.16 and 2105 hrs. 2. No pulmonary embolus. 3. Thyroid nodule. 4. Small hiatal hernia. Dictated by: Viet Appiah M.D. on 12/18/2016 at 21:05 Approved by: Viet Appiah M.D. on 12/18/2016 at 21:11 . 12-lead ECG NSR w/heart rate of 97, no acute ischemic changes. Additional Diagnostics ABG Interpretation: DateTimeAnalyzed 19:25:00 -_ pH ____7.578 - 7.350 7.450 pCO2 ___28.6__ -mmHg 35.0 45.0 pO2 ___95.0__ -mmHg 69.0 116 HCO3- ___26.8__ -mmol/L 22.0 26.0 ABE ____5.1__ -mmol/L -2.0 2.0 tHb ____9.4__ -g/dL O2Hb ___96.0__ -% COHb ____1.4__ -% MetHb ____1.1__ -% sO2 ___98.5__ -% FIO2 ___21.0__ -% Drawn By dh - Date/Time Notified____ 19:28:00 -_ Oxygen Device 1 _ROOM AIR - Notified By DH - Notified Whom Bere Oliveira Beck - B 763 -mmHg tO2 ___12.8__ -Vol% Nehemiah test _Positive - Assessment & Plan 66 y/o female with a history of breast CA s/p recent double mastectomy and reconstruction at the [facility] who presented to the ED via EMS c /o new onset abdominal pain associated with pleuritic chest pain, nausea and radiating to her back admitted for observation and conservative management after CT angio chest demonstrated subcutaneous emphysema and pneumomediastinum, no pleural effusions or pneumothorax, no pulmonary embolism. #. POD 2 SBO from incarcerated ventral hernia, released with hernia repair. IVF , analgesia, diet advance per surgery. -Continuing IV antibiotics, Zosyn, worsening leukocytosis, albeit negative lactate with new discoloration on abdominal skin, management per surgery with tentative plan of CT abdomen if abdominal pain worsens or patient begins lto lose sensation/spikes fever -Monitor daily CBC #. Acute pneumomediastinum, present on admission. Active. -Pt is post-operative day #6 from breast reconstructive surgery & post-op day # 26 following double mastectomy. This is residual air from a known previous surgical pneumonthorax. #. Lactic acidosis, POA. Resolved with surgery and IVF. #. Hx of breast cancer s/p double mastectomy w/ complete reconstruction on 12/13, present on admission. Active. -Surgical incisions are well approximated with adequate granulation tissue and no erythema/purulent drainage. Drain in place with minimal serosanguineous fluid. #Anemia, unknown chronicity, present on admission. Active. -Patient denies known history of anemia. Post-operative day #6 from breast reconstructive surgery at . -Hemodynamically stable with no signs of active bleeding. -Hgb/Hct on admission 9.7/30.7, repeat and in am Stable, follow. #. -Hypertension- continue home dosing Lisinopril when able. At goal currently -Hyperlipidemia- continue home dosing atorvastatin. -Depression- continue home dosing Effexor Patient admitted under observation status with expected length of stay < 2 midnights for severity of present symptoms, complexities of treatment plan and risk for adverse event. DVT prophylaxis with heparin GI Prophylaxis: Not indicated VTE Prophylaxis: Sub-Q Heparin (Unfractionated), Sub-Q Enoxaparin VTE Mechanical Devices: Intermittant Pneumatic CD Resuscitation Status: CPR: Attempt Resuscitation Time spent 35 minutes spent with evaluation and management Attending Statement Disposition: Pending clinical improvement and recommendations per surgery with at least 2-3 more days expected Jayant Khoury DO Dec 21, 2016 12:20
[2016-12-21] MEDS: Nitroglycerin 2% 1 Gm Ointment TOPICAL SCH ×2 (12:35→21:37)
--- NOTE | 2016-12-21 14:45 | PROG NOTE ---
[address] [address] PROGRESS NOTE PATIENT: DAYSI HORVATH : 1950 MR#: [id number] ADMIT: 12/18/2016 JOB ID: [id number] DATE: 12/21/2016 SUBJECTIVE: I discussed the patient's case with Stiven Brownlee, a plastic surgeon. He recommended testing that flap of skin with a pin prick. I assessed it. There was a good bright red flow. It was quite quick, although it stopped in an appropriate amount of time. The skin does look purple and likely has some venous congestion. Therefore, I am going to see if some nitro paste will help. I also inspected the bilateral breast flaps and those appear healthy.
[2016-12-21] MEDS: Ondansetron 2 mg/mL 2 mL Inj IVPUSH PRN (15:32)
[2016-12-22] VITALS (8 sets, daily range): BP systolic 98–128; BP diastolic 63–80; PULSE 90–106; RESP 16–18; O2SAT 91–97
[2016-12-22] MEDS: Heparin 5,000 Unit/mL Inj SUBQ SCH ×3 (00:40→17:42)
[2016-12-22] MEDS: Piperacillin-Tazo 3.375 Gm Inj 3.375 GM in Dextrose 5% Minibag Plus 50 ML IV SCH ×3 (00:40→17:40)
[2016-12-22] MEDS: HYDROmorphone 1 mg/mL Inj IVPUSH PRN ×6 (00:42→17:42)
[2016-12-22 06:45] LABS: BASOPHILS % (AUTO) 0.4 % (0-3); EOSINOPHILS % (AUTO) 10.6 % (0-5); MONOCYTES % (AUTO) 8.8 % (4-12); Mean Corpuscular Hemoglobin 27.6 pg (27.0-35.0); Mean Corpuscular Volume 90.7 fL (81-100); NEUTROPHILS % (AUTO) 58.2 % (40-74); Platelet Count 339 bil/L (150-400)
[2016-12-22] MEDS: Pantoprazole 4 mg/mL 10 mL Inj IVPUSH SCH (08:35)
[2016-12-22] MEDS: Sodium Chloride LOK Flush 10 mL Syringe IVFLUSH PRN (08:36)
--- NOTE | 2016-12-22 08:36 | PROG NOTE ---
[address] [address] PROGRESS NOTE PATIENT: DAYSI HORVATH : 1950 MR#: [id number] ADMIT: 12/18/2016 JOB ID: [id number] DATE: DATE OF ENCOUNTER IS DECEMBER 22, 2016: 12/22/2016 SUBJECTIVE: The patient is seen in followup for a recent repair of incarcerated strangulated ventral incisional hernia. The patient tells me she continues to feel better each day. She has been passing a small amount of flatus. OBJECTIVE: She has remained afebrile over the last 24 hours. Her tachycardia is slowly coming down. It was low in 100s overnight. The morning she is afebrile. Temperature 36.7 degrees, heart rate of 106, blood pressure 115/67, saturating 97% on room air. In general, she appears comfortable in no acute distress. Her abdomen is soft, not significantly tender. Incision looks fine. The patch of skin that was quite congested yesterday looks better with the application of the nitro paste. LABORATORY STUDIES: Her white blood cell count was normal at 10.1. Her hematocrit has dropped from 31.2 to 26.3, and her platelet count has dropped from 344 to 379. BMP is pending. ASSESSMENT/PLAN: A 66-year-old female with a history of incisional hernia shortly after a bilateral NADER flap breast reconstruction. I am encouraged that the patient continues to feel better each day. Her abdominal exam remains benign. She can advance to a full liquid diet though I cautioned her to continue go slow. Her Dickey catheter can come out today. She will continue to work on ambulation.
[2016-12-22] MEDS: Dextrose 5% Lactated Ringer's 1,000 ML IV SCH ×2 (10:10→22:23)
[2016-12-22] MEDS: Nitroglycerin 2% 1 Gm Ointment TOPICAL SCH ×2 (10:14→22:22)
[2016-12-22] MEDS: Lisinopril 40 Tablet PO SCH (10:59)
[2016-12-22] MEDS: Venlafaxine XR 75 mg ER24 Capsule PO SCH (10:59)
--- NOTE | 2016-12-22 12:15 | PCM.PNMED ---
Subjective Date of Service Dec 22, 2016 Subjective Pt states she is doing better today. She states she passed a small amount of gas this morning. She is starting to feel hungry. She denies any nausea, vomiting or bowel movement today. She also denies any chest pain or shortness of breath. No other complaints or concerns at this time. Exam Vital Signs Vital Sign - Last Date Time Temp Pulse Resp B/P Pulse Ox O2 Delivery O2 Flow Rate FiO2 12/22/16 09:59 36.6 100 16 123/80 95 Room Air 12/21/16 19:57 2.00 Intake and Output 12/21/16 12/21/16 12/22/16 Cumulative From/Thru 15:00 23:00 07:00 12/18/16 18:45 - 12/22/16 06:00 Intake Total 23 ml 1336 ml 1701 ml 9259 ml Output Total 640 ml 1053 ml 7969 ml Balance 23 ml 696 ml 648 ml 1290 ml Intake Oral 300 ml 400 ml 1000 ml IV Total 23 ml 1036 ml 1301 ml 8259 ml Output Urine Total 500 ml 1000 ml 5150 ml Gastric Drainage Total 900 ml Emesis 0 ml Drainage Total 140 ml 53 ml 1919 ml # Bowel Movements 0 0 Exam GENERAL: NAD, Pt laying in bed comfortably HEENT: AT/NC, PERRLA, EOMI, Mucus Membranes are moist NECK: Supple; No LAD or Thyromegaly present CARDIAC: RRR; No M/R/G PULM: CTAB; No wheezes or rhonchi bilaterally ABD: Soft, Nontender, Nondistended, Positive bowel sounds in all quadrants, No Hepatosplenomegaly appreciated EXT: No C/C/E; No calf tenderness bilaterally NEURO: Alert and oriented x3; Following all commands PSYCH: Normal mood and affect IVs and Medications Medications Reviewed: Medications were reviewed in detail Lab and Diagnostics Result Diagram: 12/22/1661412/22/16614 X-Rays, CTs and MRIs X-RAY CHEST ONE VIEW, PORTABLE (12/18/16) IMPRESSION: No acute process. Dictated by: Viet Appiah M.D. on 12/18/2016 at 19:22 Approved by: Viet Appiah M.D. on 12/18/2016 at 19:23 CT ANGIO CHEST PULMONARY EMBOLISM (4/2/17) IMPRESSION: 1. Subcutaneous emphysema and pneumomediastinum. Findings discussed with Dr. Blackburn on 12.18.17 and 2105 hrs. 2. No pulmonary embolus. 3. Thyroid nodule. 4. Small hiatal hernia. Dictated by: Viet Appiah M.D. on 12/18/2016 at 21:05 Approved by: Viet Appiah M.D. on 12/18/2016 at 21:11 . 12-lead ECG NSR w/heart rate of 97, no acute ischemic changes. Additional Diagnostics ABG Interpretation: DateTimeAnalyzed 19:25:00 -_ pH ____7.578 - 7.350 7.450 pCO2 ___28.6__ -mmHg 35.0 45.0 pO2 ___95.0__ -mmHg 69.0 116 HCO3- ___26.8__ -mmol/L 22.0 26.0 ABE ____5.1__ -mmol/L -2.0 2.0 tHb ____9.4__ -g/dL O2Hb ___96.0__ -% COHb ____1.4__ -% MetHb ____1.1__ -% sO2 ___98.5__ -% FIO2 ___21.0__ -% Drawn By dh - Date/Time Notified____ 19:28:00 -_ Oxygen Device 1 _ROOM AIR - Notified By DH - Notified Whom Bere Oliveira Beck - B 763 -mmHg tO2 ___12.8__ -Vol% Nehemiah test _Positive - Assessment & Plan 66 y/o female with a history of breast CA s/p recent double mastectomy and reconstruction at the [facility] who presented to the ED via EMS c /o new onset abdominal pain associated with pleuritic chest pain, nausea and radiating to her back admitted for observation and conservative management after CT angio chest demonstrated subcutaneous emphysema and pneumomediastinum, no pleural effusions or pneumothorax, no pulmonary embolism. 1. Small Bowel Obstruction - Secondary to Incarcerated Ventral Hernia - General Surgery following - Pt passing gas today - Full liquid diet per General Surgery - Continue IV fluids - Monitor closely 2. Pneumomediastinum, Acute - Pt is post operative day #7 from breast reconstructive surgery and post op day #27 from double mastectomy - Monitor closely - Pt is asymptomatic 3. Anemia - Monitor - Repeat CBC in AM 4. Essential Hypertension - Stable - Monitor closely 5. Breast Cancer - Status post double mastectomy - Pt to follow-up with Oncology as an outpatient 6. Hyperlipidemia 7. Depression GI Prophylaxis: Not indicated VTE Prophylaxis: Sub-Q Heparin (Unfractionated), Sub-Q Enoxaparin VTE Mechanical Devices: Intermittant Pneumatic CD Resuscitation Status: CPR: Attempt Resuscitation El Gould MD Dec 22, 2016 12:15 DVT prophylaxis with heparin GI Prophylaxis: Not indicated VTE Prophylaxis: Sub-Q Heparin (Unfractionated), Sub-Q Enoxaparin VTE Mechanical Devices: Intermittant Pneumatic CD Resuscitation Status: CPR: Attempt Resuscitation El Gould MD Dec 22, 2016 12:15
[2016-12-23] VITALS (11 sets, daily range): BP systolic 90–114; BP diastolic 54–70; PULSE 81–103; RESP 14–17; O2SAT 93–96
[2016-12-23] MEDS: Heparin 5,000 Unit/mL Inj SUBQ SCH ×3 (00:36→18:09)
[2016-12-23] MEDS: Piperacillin-Tazo 3.375 Gm Inj 3.375 GM in Dextrose 5% Minibag Plus 50 ML IV SCH (00:37)
[2016-12-23] MEDS: HYDROmorphone 1 mg/mL Inj IVPUSH PRN ×2 (00:49→07:59)
[2016-12-23 04:50] LABS: BASOPHILS % (AUTO) 0.3 % (0-3); EOSINOPHILS % (AUTO) 8.8 % (0-5); MONOCYTES % (AUTO) 9.1 % (4-12); Mean Corpuscular Hemoglobin 27.4 pg (27.0-35.0); Mean Corpuscular Volume 90.4 fL (81-100); NEUTROPHILS % (AUTO) 55.3 % (40-74); Platelet Count 325 bil/L (150-400)
[2016-12-23] MEDS: Sodium Chloride LOK Flush 10 mL Syringe IVFLUSH PRN (07:59)
[2016-12-23] MEDS: Polyethylene Glycol (PEG) 17 Gm Powder PO SCH (08:02)
[2016-12-23] MEDS: Nitroglycerin 2% 1 Gm Ointment TOPICAL SCH ×2 (08:06→20:42)
[2016-12-23] MEDS: Venlafaxine XR 75 mg ER24 Capsule PO SCH (08:09)
[2016-12-23] MEDS: Lisinopril 40 Tablet PO SCH (08:09)
[2016-12-23] MEDS ORDERED: Pantoprazole 40 mg ER24 Tablet PO ONE (08:15)
[2016-12-23] MEDS ORDERED: diphenhydrAMINE 25 mg Capsule PO PRN (08:30)
--- NOTE | 2016-12-23 09:32 | DRSVH ---
PROCEDURE: CT ABDOMEN AND PELVIS WITHOUT CONTRAST ([id number]) INDICATIONS: post op. abd pain, dec hemoglobin TECHNIQUE: After the administration of oral contrast, 5 mm thick sections acquired from the diaphragms to the sy mphysis. 5 mm coronal and sagittal reformats were performed. For radiation dose reduction, the foll owing was used: automated exposure control, adjustment of mA and/or kV according to patient size. COMPARISON: [facility], CT, CT ABD PELVIS W CON, 12/19/2016, 14:46. FINDINGS: Image quality: Excellent. ABDOMEN: Lung bases: There are basilar atelectasis and scarring. Heart size is normal. Solid organs: Liver and spleen are normal in size. Gallbladder is surgically absent. Pancreas is n ormal in size. No adrenal nodules. The 2 cm left renal mass seen on a recent contrast enhanced scan is not well-seen. Both kidneys are normal in size, without hydronephrosis or nephrolithiasis. Peritoneum and bowel: Bowel loops demonstrate normal wall thickness and caliber. There is mild nons pecific mesenteric stranding. Numerous colonic diverticula are present in descending and sigmoid colo n. No evidence for active diverticulitis. There is a small amount of free fluid. No free air. Nodes and vessels: No retroperitoneal or mesenteric adenopathy by size criteria. Aorta and inferior vena cava are normal in size. Miscellaneous: There are postsurgical changes related to ventral hernia repair in the left upper ante rior abdominal wall. Small subcutaneous air collections are noted, likely related to recent surgery. There is a small residual ventral hernia containing omental fat. No evidence for postoperative hemat denia or abscess. PELVIS: Genitourinary: Bladder wall thickness is normal. Miscellaneous: No inguinal hernias or adenopathy. Bones: No suspicious bony lesions. No vertebral body compression fractures. IMPRESSION: 1. Post surgical changes related to ventral hernia repair in the left upper anterior abdominal wall. There is a tiny residual hernia which contains omental fat. Mild stranding and small pocket of air co llections are seen along the surgical scar, most likely secondary to post surgical changes. No CT fin dings to suggest postoperative hematoma or abscess. 2. Diverticulosis. No active diverticulitis. 3. Small amount of free fluid. Dictated by: Luann Land M.D. on 12/23/2016 at 9:24 Transcribed by: GIDEON on 12/23/2016 at 9:32 Approved by: Luann Land M.D. on 12/23/2016 at 10:42
--- NOTE | 2016-12-23 10:39 | PROG NOTE ---
[address] [address] PROGRESS NOTE PATIENT: DAYSI HORVATH : 1950 MR#: [id number] ADMIT: 12/18/2016 JOB ID: [id number] DATE: 12/23/2016 PROGRESS NOTE: The patient is seen postoperative day four from her emergent reduction of strangulated small bowel and repair of ventral incisional hernia. She continues to do well. Her pain continues to decrease. She is passing more flatus. Her tachycardia seems to have resolved. However, early this morning for reasons that are unclear to me, the hospitalist ordered a CT scan of the abdomen and pelvis. The report is pending, but I looked at it and it looks fine to me with the hernia repair intact and minimal fluid in the belly. Over the last 24 hours, she has remained afebrile. Her heart rate is now improved in the 90s. This morning, temperature is 36.7, heart rate is 90, blood pressure is 114/70. She is saturating 96% on room air with a respiratory rate of 16 breaths per minute. In general, appears she appears comfortable, in no acute distress. Her abdomen is soft, not significantly tender. The area of the congestive skin looks about the same. The breast flaps were inspected and appeared healthy and viable. Her NORMA drains had scant serous output. Over the last 24 hours, the breast NORMA drain did put out 30 cc and 6 cc. The abdominal drains have put out 105 and 70. LABORATORY STUDIES: White blood cell count remains normal at 8.7. Her hematocrit is slowly drifting down at 24.4. Her platelet count is 325. Her creatinine looks fine at 0.64. ASSESSMENT AND PLAN: This is a 66-year-old female who underwent a breast reconstruction with bilateral deep inferior epigastric cephalometric tracer flaps complicated by an incisional hernia with strangulation of bowel. Overall, she looks well. I am not sure what the CT scan was obtained for, but to my read it looks okay. She continues to have flatus and is no longer having nausea. I am going to stop her intravenous fluids. I encouraged her to continue to ambulate. Also going to stop her intravenous antibiotics. Her Dieter-Gunn drain number three which was one of the breast drains can come out. I anticipate that the other breast drain will probably come out tomorrow. She is anemic. I do not recommend a transfusion at this point, as she is asymptomatic. Undoubtedly, part of this is hemodilutional. This can be followed.
[2016-12-23] MEDS: 0.9% Sodium Chloride 250 ML IV SCH (10:44)
--- NOTE | 2016-12-23 12:05 | PCM.PNMED ---
Subjective Date of Service Dec 23, 2016 Subjective Pt states she is feeling well this morning. She continues to pass flatus. She denies any nausea and vomiting but reports she really does not have much of an appetite. She denies having any bowel movements. She does report feeling quite weak today. No other complaints or concerns at this time. Exam Vital Signs Vital Sign - Last Date Time Temp Pulse Resp B/P Pulse Ox O2 Delivery O2 Flow Rate FiO2 12/23/16 11:10 36.9 94 16 95/56 12/23/16 04:11 96 Room Air 12/21/16 19:57 2.00 Intake and Output 12/22/16 12/22/16 12/23/16 Cumulative From/Thru 15:00 23:00 07:00 12/18/16 18:45 - 12/23/16 06:39 Intake Total 1360 ml 1237 ml 21312 ml Output Total 658 ml 658 ml 9285 ml Balance 702 ml 579 ml 2571 ml Intake Oral 300 ml 150 ml 1450 ml IV Total 1060 ml 1087 ml 74190 ml Output Urine Total 500 ml 550 ml 6200 ml Gastric Drainage Total 900 ml Emesis 0 ml Drainage Total 158 ml 108 ml 2185 ml # Bowel Movements 0 0 Exam GENERAL: NAD, Pt laying in bed comfortably, Pt appears somewhat pale HEENT: AT/NC, PERRLA, EOMI, Mucus Membranes are moist CARDIAC: RRR; No M/R/G PULM: CTAB; No wheezes or rhonchi bilaterally ABD: Soft, Nontender, Nondistended, few bowel sounds in all quadrants, No Hepatosplenomegaly appreciated EXT: No C/C/E; No calf tenderness bilaterally NEURO: Alert and oriented x3; Following all commands PSYCH: Normal mood and affect IVs and Medications Medications Reviewed: Medications were reviewed in detail Lab and Diagnostics Result Diagram: 12/23/16 0845 12/23/16 0440 X-Rays, CTs and MRIs X-RAY CHEST ONE VIEW, PORTABLE (12/18/16) IMPRESSION: No acute process. Dictated by: Viet Appiah M.D. on 12/18/2016 at 19:22 Approved by: Viet Appiah M.D. on 12/18/2016 at 19:23 CT ANGIO CHEST PULMONARY EMBOLISM (12/18/16) IMPRESSION: 1. Subcutaneous emphysema and pneumomediastinum. Findings discussed with Dr. Blackburn on 12.18.17 and 2105 hrs. 2. No pulmonary embolus. 3. Thyroid nodule. 4. Small hiatal hernia. Dictated by: Viet Appiah M.D. on 12/18/2016 at 21:05 Approved by: Viet pApiah M.D. on 12/18/2016 at 21:11 . 12-lead ECG NSR w/heart rate of 97, no acute ischemic changes. Additional Diagnostics ABG Interpretation: DateTimeAnalyzed 19:25:00 -_ pH ____7.578 - 7.350 7.450 pCO2 ___28.6__ -mmHg 35.0 45.0 pO2 ___95.0__ -mmHg 69.0 116 HCO3- ___26.8__ -mmol/L 22.0 26.0 ABE ____5.1__ -mmol/L -2.0 2.0 tHb ____9.4__ -g/dL O2Hb ___96.0__ -% COHb ____1.4__ -% MetHb ____1.1__ -% sO2 ___98.5__ -% FIO2 ___21.0__ -% Drawn By dh - Date/Time Notified____ 19:28:00 -_ Oxygen Device 1 _ROOM AIR - Notified By DH - Notified Whom Bere Oliveira Beck - B 763 -mmHg tO2 ___12.8__ -Vol% Nehemiah test _Positive - Assessment & Plan 66 y/o female with a history of breast CA s/p recent double mastectomy and reconstruction at the [facility] who presented to the ED via EMS c /o new onset abdominal pain associated with pleuritic chest pain, nausea and radiating to her back admitted for observation and conservative management after CT angio chest demonstrated subcutaneous emphysema and pneumomediastinum, no pleural effusions or pneumothorax, no pulmonary embolism. 1. Small Bowel Obstruction - Improving - Secondary to Incarcerated Ventral Hernia - General Surgery following - Pt continues to pass gas today - Continue full liquid diet per General Surgery - CT of the abdomen looks okay, not sure why this was ordered - Monitor closely 2. Pneumomediastinum, Acute - Pt is post operative day #7 from breast reconstructive surgery and post op day #27 from double mastectomy - Monitor closely - Pt is asymptomatic 3. Anemia - H/H has slowly drifted down - She looks more pale today and is slightly short of breath - I will go ahead and transfuse 1 unit of PRBCs now - Repeat CBC in AM 4. Essential Hypertension - Pts BP is running quite low presently - I will decrease Lisinopril to 20 mg daily (from 40 mg daily) - Monitor closely 5. Breast Cancer - Status post double mastectomy - Pt to follow-up with Oncology as an outpatient 6. Hyperlipidemia 7. Depression GI Prophylaxis: Not indicated VTE Prophylaxis: Sub-Q Heparin (Unfractionated), Sub-Q Enoxaparin VTE Mechanical Devices: Intermittant Pneumatic CD Resuscitation Status: CPR: Attempt Resuscitation El Gould MD Dec 23, 2016 12:05
[2016-12-23 14:29] LABS: Mean Corpuscular Hemoglobin 27.2 pg (27.0-35.0); Mean Corpuscular Volume 87.3 fL (81-100)
[2016-12-24] VITALS (8 sets, daily range): BP systolic 101–186; BP diastolic 60–81; PULSE 64–102; RESP 16–20; O2SAT 97–98
[2016-12-24] MEDS: Heparin 5,000 Unit/mL Inj SUBQ SCH ×4 (00:59→23:25)
[2016-12-24] MEDS: Venlafaxine XR 75 mg ER24 Capsule PO SCH (08:23)
[2016-12-24] MEDS: Polyethylene Glycol (PEG) 17 Gm Powder PO SCH (08:25)
[2016-12-24] MEDS: Nitroglycerin 2% 1 Gm Ointment TOPICAL SCH ×2 (08:25→20:33)
[2016-12-24] MEDS: 0.9% Sodium Chloride 250 ML IV SCH (08:26)
[2016-12-24] MEDS: Sodium Chloride LOK Flush 10 mL Syringe IVFLUSH PRN (08:26)
--- NOTE | 2016-12-24 10:43 | PCM.PNMED ---
Subjective Date of Service Dec 24, 2016 Subjective Pt states she is feeling better today and has a little more of an appetite. She continues to pass gas but has not had a bowel movement. She continues to deny any nausea or vomiting No other complaints or concerns at this time. Exam Vital Signs Vital Sign - Last Date Time Temp Pulse Resp B/P Pulse Ox O2 Delivery O2 Flow Rate FiO2 12/24/16 10:10 36.4 73 17 111/73 97 Room Air 12/21/16 19:57 2.00 Intake and Output 12/23/16 12/23/16 12/24/16 Cumulative From/Thru 15:00 23:00 07:00 12/18/16 18:45 - 12/24/16 06:30 Intake Total 272 ml 1236 ml 79320 ml Output Total 979 ml 150 ml 10510 ml Balance 272 ml 257 ml -150 ml 2950 ml Intake Oral 1236 ml 2686 ml IV Total 272 ml 39818 ml Output Urine Total 850 ml 7050 ml Gastric Drainage Total 900 ml Emesis 0 ml Drainage Total 129 ml 150 ml 2464 ml # Bowel Movements 0 Exam GENERAL: NAD, Pt laying in bed comfortably HEENT: AT/NC, PERRLA, EOMI, Mucus Membranes are moist CARDIAC: RRR; No M/R/G PULM: CTAB; No wheezes or rhonchi bilaterally ABD: Soft, Nontender, Nondistended NEURO: Alert and oriented x3; Following all commands IVs and Medications Medications Reviewed: Medications were reviewed in detail Lab and Diagnostics Result Diagram: 12/24/16 0115 12/23/16 0440 X-Rays, CTs and MRIs X-RAY CHEST ONE VIEW, PORTABLE (12/18/16) IMPRESSION: No acute process. Dictated by: Viet Appiah M.D. on 12/18/2016 at 19:22 Approved by: Viet Appiah M.D. on 12/18/2016 at 19:23 CT ANGIO CHEST PULMONARY EMBOLISM (12/18/16) IMPRESSION: 1. Subcutaneous emphysema and pneumomediastinum. Findings discussed with Dr. Blackburn on 12.18.16 and 2105 hrs. 2. No pulmonary embolus. 3. Thyroid nodule. 4. Small hiatal hernia. Dictated by: Viet Appiah M.D. on 12/18/2016 at 21:05 Approved by: Viet Appiah M.D. on 12/18/2016 at 21:11 . 12-lead ECG NSR w/heart rate of 97, no acute ischemic changes. Additional Diagnostics ABG Interpretation: DateTimeAnalyzed 19:25:00 -_ pH ____7.578 - 7.350 7.450 pCO2 ___28.6__ -mmHg 35.0 45.0 pO2 ___95.0__ -mmHg 69.0 116 HCO3- ___26.8__ -mmol/L 22.0 26.0 ABE ____5.1__ -mmol/L -2.0 2.0 tHb ____9.4__ -g/dL O2Hb ___96.0__ -% COHb ____1.4__ -% MetHb ____1.1__ -% sO2 ___98.5__ -% FIO2 ___21.0__ -% Drawn By dh - Date/Time Notified____ 19:28:00 -_ Oxygen Device 1 _ROOM AIR - Notified By DH - Notified Whom Bere Oliveira Beck - B 763 -mmHg tO2 ___12.8__ -Vol% Nehemiah test _Positive - Assessment & Plan 66 y/o female with a history of breast CA s/p recent double mastectomy and reconstruction at the [facility] who presented to the ED via EMS c /o new onset abdominal pain associated with pleuritic chest pain, nausea and radiating to her back admitted for observation and conservative management after CT angio chest demonstrated subcutaneous emphysema and pneumomediastinum, no pleural effusions or pneumothorax, no pulmonary embolism. 1. Small Bowel Obstruction - Improving daily - Secondary to Incarcerated Ventral Hernia - General Surgery following - Pt continues to pass gas today - Continue full liquid diet per General Surgery - Pt encouraged to ambulate as much as possible today - Monitor closely 2. Pneumomediastinum, Acute - Pt is post operative day #7 from breast reconstructive surgery and post op day #27 from double mastectomy - Monitor closely - Pt is asymptomatic 3. Anemia - H/H stable post transfusion - She looks more pale today and is slightly short of breath - Pt was transfused 1 unit of PRBCs on 12/23/2016 - Repeat CBC in AM 4. Essential Hypertension - Stable - Continue Lisinopril at 20 mg daily - Monitor closely 5. Breast Cancer - Status post double mastectomy - Pt to follow-up with Oncology as an outpatient 6. Hyperlipidemia 7. Depression GI Prophylaxis: Not indicated VTE Prophylaxis: Sub-Q Heparin (Unfractionated), Sub-Q Enoxaparin VTE Mechanical Devices: Intermittant Pneumatic CD Resuscitation Status: CPR: Attempt Resuscitation El Gould MD Dec 24, 2016 10:43
--- NOTE | 2016-12-24 13:48 | PROG NOTE ---
[address] [address] PROGRESS NOTE PATIENT: DAYSI HORVATH : 1950 MR#: [id number] ADMIT: 12/18/2016 JOB ID: [id number] DATE: 12/24/2016 SUBJECTIVE: The patient is seen in followup. She is doing well. She has no nausea. She is not really passing much flatus yet but tolerates a full liquid diet. Pain control is adequate. OBJECTIVE: Temperature 36.3, pulse 88, blood pressure 101/60, saturation 97% on room air. General: She is sitting up in bed, in no acute distress. Breasts: Her breast reconstruction incisions are well approximated, nipples are well perfused. The right-sided NORMA drain was removed. Abdomen: Bowel tones are present. Her skin near the umbilicus is slightly congested, but is perfused and viable. Her incisions are intact. Abdominal drains are putting out serosanguineous fluid. LABS: Hematocrit 28.7. ASSESSMENT AND PLAN: A 66-year-old woman, status post breast reconstruction with abdominal free flaps, complicated by incisional hernia with incarcerated small bowel, now status post exploratory laparotomy with reduction of incarcerated bowel and hernia repair with biologic mesh. We are awaiting return of bowel function. She is otherwise doing well. I anticipate that she may be ready to leave the hospital on Monday, if she continues to make progress.
[2016-12-24] MEDS: Codeine-guaiFENesin 10 mL Syrup PO PRN (23:21)
[2016-12-25] VITALS (8 sets, daily range): BP systolic 96–137; BP diastolic 62–85; PULSE 83–99; RESP 16–20; O2SAT 95–99
[2016-12-25] MEDS: 0.9% Sodium Chloride 250 ML IV SCH (08:30)
[2016-12-25] MEDS: Nitroglycerin 2% 1 Gm Ointment TOPICAL SCH ×2 (08:30→19:40)
[2016-12-25] MEDS: Polyethylene Glycol (PEG) 17 Gm Powder PO SCH (08:30)
[2016-12-25] MEDS ORDERED: OXYC5TAB72 PO (08:58)
[2016-12-25] MEDS ORDERED: POLY17PO6 PO (08:58)
--- NOTE | 2016-12-25 08:59 | PCM.DISURG ---
Mikie Cuevas MD 12/23/16 0917: Surgical Discharge Instruction Date of Service Dec 23, 2016 Dates of Hospitalization Date of Hospital Admission Dec 18, 2016 at 22:04 Providers Admitting Physician: Leola Donald DO Primary Care Physician: Other,Physician Attending Physician: Leola Donald DO Discharge Diagnosis Discharge Diagnosis Ventral incisional hernia with strangulated bowel Diet Discharge Diet: No restrictions Activity Discharge Activity-General: Be up and about, No driving while taking narcotic Dressing and Incisional Care Hygiene: May shower, NO bathtub, hot tub or whirlpool Follow Up Plan Follow Up Plan Follow up with your plastic surgeon within a week Follow up with Dr Cuevas in 7-10 days Call your provider for: Fever, Chills, Increasing abdominal pain, Nausea, Vomiting Tj Sykes MD 12/25/16 0858: Mikie Cuevas MD Dec 23, 2016 09:17 Tj Sykes MD Dec 25, 2016 08:58
[2016-12-25] MEDS: Venlafaxine XR 75 mg ER24 Capsule PO SCH (09:10)
--- NOTE | 2016-12-25 09:59 | PROG NOTE ---
[address] [address] PROGRESS NOTE PATIENT: RIA HORVATH : 1950 MR#: [id number] ADMIT: 12/18/2016 JOB ID: [id number] DATE: 12/25/2016. SUBJECTIVE: Ria is seen in followup. She is doing well. She had return of bowel function yesterday. She has no nausea. She has minimal abdominal pain. She is hoping to go home today. OBJECTIVE: Temperature 36.7, pulse 83, blood pressure 124/81, saturation 98% on room air. General, she is resting in bed in no acute distress. Chest is clear. Heart regular rate and rhythm. Breasts: Her mastectomy incisions are well approximated. The nipples are well perfused. There is minimal ecchymoses. Abdomen, her incisions are well approximated. The skin between the midline incision and her subcostal incision on the right has improved perfusion, and is now just a light pink color, no longer purple or congested. Bowel tones are present. She has minimal tenderness. Abdominal NORMA drains have serosanguineous output. DIAGNOSTIC STUDIES: Labs are pending. ASSESSMENT AND PLAN: A 66-year-old woman status post repair of a strangulated incisional hernia with biologic mesh following breast reconstruction with abdominal free flaps. She is doing much better. I do think she can be safely discharged from the hospital today. She should follow up with her plastic surgeon in 1 week, and with Dr. Mikie Cuevas in [facility] in 1 week.
[2016-12-25 10:02] LABS: BASOPHILS % (AUTO) 0.3 % (0-3); EOSINOPHILS % (AUTO) 5.9 % (0-5); MONOCYTES % (AUTO) 7.5 % (4-12); Mean Corpuscular Hemoglobin 27.6 pg (27.0-35.0); Mean Corpuscular Volume 86.8 fL (81-100); NEUTROPHILS % (AUTO) 65.5 % (40-74); Platelet Count 408 bil/L (150-400)
--- NOTE | 2016-12-25 10:16 | PCM.PNMED ---
Subjective Date of Service Dec 25, 2016 Subjective Pt reports she is feeling much better. She had a bowel movement last night. She states she does not completely have her appetite back. She has been on a soft diet until now and has tolerated this well. She denies nausea and vomiting. No other complaints or concerns at this time. Exam Vital Signs Vital Sign - Last Date Time Temp Pulse Resp B/P Pulse Ox O2 Delivery O2 Flow Rate FiO2 12/25/16 08:59 93 12/25/16 07:30 36.7 16 124/81 98 Room Air 12/21/16 19:57 2.00 Intake and Output 12/24/16 12/24/16 12/25/16 Cumulative From/Thru 15:00 23:00 07:00 12/18/16 18:45 - 12/24/16 18:51 Intake Total 1000 ml 47026 ml Output Total 670 ml 08185 ml Balance 330 ml 3280 ml Intake Oral 1000 ml 3686 ml IV Total 80868 ml Output Urine Total 500 ml 7550 ml Gastric Drainage Total 900 ml Emesis 0 ml Drainage Total 170 ml 2634 ml # Voids 2 2 # Bowel Movements 0 Exam GENERAL: NAD, Pt laying in bed comfortably HEENT: AT/NC, PERRLA, EOMI, Mucus Membranes are moist CARDIAC: RRR; No M/R/G PULM: CTAB; No wheezes or rhonchi bilaterally ABD: Soft, Nontender, Nondistended, Positive bowel sounds in all quadrants, No Hepatosplenomegaly appreciated NEURO: Alert and oriented x3; Following all commands IVs and Medications Medications Reviewed: Medications were reviewed in detail Lab and Diagnostics Result Diagram: 12/25/16 0950 12/23/16 0440 X-Rays, CTs and MRIs X-RAY CHEST ONE VIEW, PORTABLE (12/18/16) IMPRESSION: No acute process. Dictated by: Viet Appiah M.D. on 12/18/2016 at 19:22 Approved by: Viet Appiah M.D. on 12/18/2016 at 19:23 CT ANGIO CHEST PULMONARY EMBOLISM (12/18/16) IMPRESSION: 1. Subcutaneous emphysema and pneumomediastinum. Findings discussed with Dr. Blackburn on 12.18.16 and 2105 hrs. 2. No pulmonary embolus. 3. Thyroid nodule. 4. Small hiatal hernia. Dictated by: Viet Appiah M.D. on 12/18/2016 at 21:05 Approved by: Viet Appiah M.D. on 12/18/2016 at 21:11 . 12-lead ECG NSR w/heart rate of 97, no acute ischemic changes. Additional Diagnostics ABG Interpretation: DateTimeAnalyzed 19:25:00 -_ pH ____7.578 - 7.350 7.450 pCO2 ___28.6__ -mmHg 35.0 45.0 pO2 ___95.0__ -mmHg 69.0 116 HCO3- ___26.8__ -mmol/L 22.0 26.0 ABE ____5.1__ -mmol/L -2.0 2.0 tHb ____9.4__ -g/dL O2Hb ___96.0__ -% COHb ____1.4__ -% MetHb ____1.1__ -% sO2 ___98.5__ -% FIO2 ___21.0__ -% Drawn By dh - Date/Time Notified____ 19:28:00 -_ Oxygen Device 1 _ROOM AIR - Notified By DH - Notified Whom Bere Oliveira Beck - B 763 -mmHg tO2 ___12.8__ -Vol% Nehemiah test _Positive - Assessment & Plan 66 y/o female with a history of breast CA s/p recent double mastectomy and reconstruction at the [facility] who presented to the ED via EMS c /o new onset abdominal pain associated with pleuritic chest pain, nausea and radiating to her back admitted for observation and conservative management after CT angio chest demonstrated subcutaneous emphysema and pneumomediastinum, no pleural effusions or pneumothorax, no pulmonary embolism. 1. Small Bowel Obstruction - Resolving - Secondary to Incarcerated Ventral Hernia - General Surgery following - Pt has had a bowel movement - Advance to a regular diet today and if pt can tolerate this, I will discharge her to home in the morning - Pt encouraged to ambulate as much as possible today - Monitor closely 2. Pneumomediastinum, Acute - Pt is post operative day #7 from breast reconstructive surgery and post op day #27 from double mastectomy - Monitor closely - Pt is asymptomatic 3. Anemia - H/H stable post transfusion - She looks more pale today and is slightly short of breath - Pt was transfused 1 unit of PRBCs on 12/23/2016 - Repeat CBC in AM 4. Essential Hypertension - Stable - Continue Lisinopril at 20 mg daily - Monitor closely 5. Breast Cancer - Status post double mastectomy - Pt to follow-up with Oncology as an outpatient 6. Hyperlipidemia 7. Depression 8. Disposition - Anticipate discharge to home in AM GI Prophylaxis: Not indicated VTE Prophylaxis: Sub-Q Heparin (Unfractionated), Sub-Q Enoxaparin VTE Mechanical Devices: Intermittant Pneumatic CD Resuscitation Status: CPR: Attempt Resuscitation El Gould MD Dec 25, 2016 10:16
[2016-12-25] MEDS: Heparin 5,000 Unit/mL Inj SUBQ SCH ×2 (11:58→18:27)
[2016-12-25] MEDS: Alum-Mag Hydrox-Simeth 30 mL Suspension PO PRN (20:57)
[2016-12-25] MEDS: Codeine-guaiFENesin 10 mL Syrup PO PRN (20:57)
[2016-12-25] MEDS: Pantoprazole 40 mg ER24 Tablet PO SCH (21:22)
[2016-12-26] MEDS: Heparin 5,000 Unit/mL Inj SUBQ SCH ×2 (01:16→08:46)
[2016-12-26 05:30] VITALS: BP 131/83; PULSE 87; RESP 17; O2SAT 98
[2016-12-26 06:20] LABS: BASOPHILS % (AUTO) 0.3 % (0-3); EOSINOPHILS % (AUTO) 4.9 % (0-5); MONOCYTES % (AUTO) 6.5 % (4-12); Mean Corpuscular Hemoglobin 27.5 pg (27.0-35.0); NEUTROPHILS % (AUTO) 68.5 % (40-74); Platelet Count 429 bil/L (150-400)
[2016-12-26] MEDS: Pantoprazole 40 mg ER24 Tablet PO SCH (06:48)
[2016-12-26] MEDS: Nitroglycerin 2% 1 Gm Ointment TOPICAL SCH (08:30)
[2016-12-26] MEDS: 0.9% Sodium Chloride 250 ML IV SCH (08:30)
[2016-12-26] MEDS: Venlafaxine XR 75 mg ER24 Capsule PO SCH (08:46)
[2016-12-26] MEDS: Polyethylene Glycol (PEG) 17 Gm Powder PO SCH (08:47)
--- NOTE | 2016-12-26 11:39 | PCM.DC.MED ---
Discharge Summary Date of Service Dec 26, 2016 Dates of Hospitalization Date of Hospital Admission Dec 18, 2016 at 22:04 Date of Discharge: Dec 26, 2016 Providers: Admitting Physician: Leola Donald DO Primary Care Physician: Other,Physician Attending Physician: Leola Donald DO Diagnosis at Time of Discharge Diagnosis at Time of Discharge 1. Small Bowel Obstruction, Resolved 2. Incarcerated Hernia, Resolved 3. Breast Cancer 4. Pneumomediastinum 5. Essential Hypertension 6. Obesity Consultations 1. General Surgery 2. Oncology Procedures XRay, CTs & MRIs X-RAY CHEST ONE VIEW, PORTABLE (12/18/16) IMPRESSION: No acute process. Dictated by: Viet Appiah M.D. on 12/18/2016 at 19:22 Approved by: Viet Appiah M.D. on 12/18/2016 at 19:23 CT ANGIO CHEST PULMONARY EMBOLISM (12/18/16) IMPRESSION: 1. Subcutaneous emphysema and pneumomediastinum. Findings discussed with Dr. Blackburn on ..17 and 2105 hrs. 2. No pulmonary embolus. 3. Thyroid nodule. 4. Small hiatal hernia. Dictated by: Viet Appiah M.D. on 12/18/2016 at 21:05 Approved by: Viet Appiah M.D. on 12/18/2016 at 21:11 . ECG 12 Lead NSR w/heart rate of 97, no acute ischemic changes. Invasive Procedures 1. Exploratory Laparotomy with Hernia Repair, 12/19/2016 Other Diagnostics ABG Interpretation: DateTimeAnalyzed 19:25:00 -_ pH ____7.578 - 7.350 7.450 pCO2 ___28.6__ -mmHg 35.0 45.0 pO2 ___95.0__ -mmHg 69.0 116 HCO3- ___26.8__ -mmol/L 22.0 26.0 ABE ____5.1__ -mmol/L -2.0 2.0 tHb ____9.4__ -g/dL O2Hb ___96.0__ -% COHb ____1.4__ -% MetHb ____1.1__ -% sO2 ___98.5__ -% FIO2 ___21.0__ -% Drawn By dh - Date/Time Notified____ 19:28:00 -_ Oxygen Device 1 _ROOM AIR - Notified By DH - Notified Whom Dr, [place], Ledezma - B 763 -mmHg tO2 ___12.8__ -Vol% Nehemiah test _Positive - Brief History Patient is a 66 y/o female with a history of breast CA s/p recent double mastectomy and reconstruction at the [facility],hypertension, hyperlipidemia, GERD, and depression who presented to the ED via EMS with the complaint of LUQ abdominal pain with radiation to her back and epigastrium that started around 3pm. Associated symptoms include nausea and one episode of vomiting, back pain and pleuritic chest pain. Symptoms aggravated by deep inspiration and without alleviating factors. She endorses a double mastectomy on 11/23/16 followed by a total reconstructive surgery on 12/13/16 performed at by plastic surgeon Dr. Mcdowell. She states that she was seen this morning in [place] for surgical follow up and without abdominal pain at that time. Her follow up was uneventful and she returned home after which she slept most of the day and reports waking with a sore throat and non-productive cough. She states that her abdominal pain was brought on by a forceful cough and was associated with progressive abdominal pain, nausea and pleuritic pain. She denies chest pain, shortness of breath, fever, chills, diarrhea, bloody or dark stool, hematemesis. She reports upper endoscopy approximately 4 years ago that was normal and a negative colonoscopy last year. She has no history of DVT or PE and was prescribed Lovenox but has not started it yet. In the ED she was afebrile with a temperature of 36.6, slightly hypertensive with a BP of 140/79 and tachycardic with a heart rate of 103. SpO2 was 96% on 2L nasal cannula. Labs were significant for a mild leukocytosis (wbc 12.2), anemia with a Hgb/Hct of 9.7/30.7, hyperglycemia with a serum glucose of 127, mildly elevated lactic acid of 2.1 and a negative troponin. UA showing trace leukocytes, 6-10 WBCs, few bacteria, negative nitrites, and sent for culture. CT angio chest revealed subcutaneous emphysema and pneumomediastinum, no pleural effusions or pneumothorax, no pulmonary embolism. Per the ED physician's he reviewed the notes from earlier today which revealed a for benign abdomen and no signs or symptoms of infection. The patient was discussed with the correctional probation officer plastic surgeon who evaluated the patient earlier today and felt she could be discharged home. However, due to poor pain control and tachycardia the decision was made to admit the patient under observation for conservative management of pneumomediastinum. Hospital Course 66 y/o female with a history of breast CA s/p recent double mastectomy and reconstruction at the [facility] who presented to the ED via EMS c /o new onset abdominal pain associated with pleuritic chest pain, nausea and radiating to her back admitted for observation and conservative management after CT angio chest demonstrated subcutaneous emphysema and pneumomediastinum, no pleural effusions or pneumothorax, no pulmonary embolism. 1. Small Bowel Obstruction - Resolved - Secondary to post operative ileus which has now resolved - General Surgery consulted and pt underwent an exploratory laparotomy for an incarcerated hernia which was repaired on 12/19/2016 - Pt has had bowel movements now and is tolerated a regular diet well - Pt is discharged from hospital in good/stable condition with home health 2. Pneumomediastinum, Acute - Pt is status postf breast reconstructive surgery and post op day #30 from double mastectomy - Pt is asymptomatic - Pt to follow-up with Surgery and her PCP 3. Anemia - H/H stable post transfusion - Pt was transfused 1 unit of PRBCs on 12/23/2016 4. Essential Hypertension - Stable - Continue Lisinopril at 20 mg daily - Monitor closely 5. Breast Cancer - Status post double mastectomy - Pt to follow-up with Oncology as an outpatient 6. Hyperlipidemia - Continue home medications 7. Depression - Continue home medications Exam Vital Signs (Last) Date Time Temp Pulse Resp B/P Pulse Ox O2 Delivery O2 Flow Rate FiO2 12/26/16 05:30 36.6 87 17 131/83 98 Room Air 12/21/16 19:57 2.00 Exam GENERAL: NAD, Pt laying in bed comfortably HEENT: AT/NC, PERRLA, EOMI, Mucus Membranes are moist CARDIAC: RRR; No M/R/G PULM: CTAB; No wheezes or rhonchi bilaterally ABD: Soft, Nontender, Nondistended, Positive bowel sounds in all quadrants, No Hepatosplenomegaly appreciated EXT: No C/C/E; No calf tenderness bilaterally SKIN: Warm, Dry, [place], and Intact NEURO: Alert and oriented x3; Following all commands PSYCH: Normal mood and affect Test 12/18/16 19:02 12/18/16 19:33 12/20/16 04:05 12/21/16 10:23 Prothrombin Time 10.1sec (8.1-12.5) Prothromb Time International Ratio 0.95ratio Troponin T < 0.010ug/L (0.0-0.011) Pro-B-Type Natriuretic Peptide 76.36pg/mL (0-287) Urine Color Yellow (YELLOW) Urine Appearance Hazy (CLEAR,HAZY) Urine pH 5.5 (5.0-8.0) Urine Specific Mckinnon 1.027 (1.003-1.035) Urine Protein Negativemg/dL (NEG,TRACE) Urine Glucose (UA) Negativemg/dL (NEGATIVE) Urine Ketones Tracemg/dL (NEGATIVE) Urine Occult Blood Moderate (NEGATIVE) Urine Nitrite Negative (NEGATIVE) Urine Bilirubin Negative (NEGATIVE) Urine Urobilinogen Normalmg/dL (NORMAL) Urine Leukocyte Esterase Trace (NEGATIVE) Urine RBC 0-2/hpf (0-2) Urine WBC 6-10/hpf (0-5) Urine Epithelial Cells Moderate/hpf (NONE-MOD) Urine Crystals None seen (NONE SEEN) Urine Bacteria Few/hpf (NONE-FEW) Urine Hyaline Casts None/lpf (NONE) Urine Granular Casts None seen (NONE SEEN) Urine Waxy Casts None seen (NONE SEEN) Urine Red Blood Cell Casts None seen (NONE SEEN) Urine White Blood Cell Casts None seen (NONE SEEN) Urine Mucus None seen (None Seen) Urine Trichomonas None seen (NONE SEEN) Urine Yeast None (NONE SEEN) Urinalysis Comment None Urine Culture Reflexed Indicated Total Bilirubin 0.5mg/dL (0.0-1.2) Aspartate Amino Transf (AST/SGOT) 15U/L (0-50) Alanine Aminotransferase (ALT/SGPT) 15U/L (0-32) Alkaline Phosphatase 43U/L (25-165) Total Protein 4.9g/dL (6.4-8.4) Albumin 3.0g/dL (3.4-5.0) Lactic Acid Level 1.3mmol/L (0.4-2.0) Test 12/26/16 05:25 White Blood Count 12.7th/mm3 (3.8-10.1) Red Blood Count 3.45mil/mm3 (3.90-5.20) Hemoglobin 9.5g/dL (12.0-15.6) Hematocrit 30.0% (35.0-46.0) Mean Corpuscular Volume 87.0fL (81-100) Mean Corpuscular Hemoglobin 27.5pg (27.0-35.0) Mean Corpuscular Hemoglobin Concent 31.7% (32.0-37.0) Red Cell Distribution Width 13.6% (12.3-15.4) Platelet Count 429bil/L (150-400) Neutrophils (%) (Auto) 68.5% (40-74) Lymphocytes (%) (Auto) 19.3% (14-46) Monocytes (%) (Auto) 6.5% (4-12) Eosinophils (%) (Auto) 4.9% (0-5) Basophils (%) (Auto) 0.3% (0-3) Sodium Level 143mEq/L (134-144) Potassium Level 4.3mEq/L (3.5-5.2) Chloride Level 107mEq/L (97-108) Carbon Dioxide Level 24mmol/L (18-29) Blood Urea Nitrogen 11mg/dL (8-27) Creatinine 0.68mg/dL (0.57-1.00) Estimat Glomerular Filtration Rate 125mL/min (>59) Glucose Level 98mg/dL (60-99) Calcium Level 8.6mg/dL (8.5-10.1) Discharge Medications Discharge Medications Atorvastatin Calcium (Atorvastatin Calcium) 40 Mg Tablet 20 MG PO HS (Reported) Lisinopril (Lisinopril) 40 Mg Tablet 40 MG PO DAILY (Reported) Pantoprazole DR (Pantoprazole DR) 40 Mg Tablet.dr 40 MG PO BID (Reported) Polyethylene Glycol 3350 (Miralax) 17 Gm Powd.pack 17 GM PO DAILY Prescribed by: VERENICE BAÑUELOS MD Prednisone (PredniSONE) 5 Mg Tab 5 MG PO BID (Reported) Venlafaxine ER (Venlafaxine ER) 150 Mg Tab.er.24 150 MG PO DAILY (Reported) As needed oxyCODONE (oxyCODONE) 5 Mg Tablet 10 MG PO QID PRN PRN For Pain (Reported) oxyCODONE (oxyCODONE) 5 Mg Tablet 5-10 MG PO Q6H PRN PRN For Moderate Pain Prescribed by: VERENICE BAÑUELOS MD Followup Plan Discharge Diet: Heart Healthy Discharge Activity: No restrictions Follow-up with PCP in: 1 week Provider: Xenia Lorenzo MD Follow-up in: 1 week (Pt to call for an appointment) Time spent 35 minutes El Gould MD Dec 26, 2016 11:39
== END 2016-12-26 11:26 | disposition home health service (06) | DRG 354 ==
LOC: SED 18:19 → EDUNIT# 18:19 → EDBD 18:19 → PCC 22:04 → CCU 12-19 12:37 → PCC 12-20 08:47 → OSC 12-20 17:49
PROVIDERS: ADMIT Internal Medicine; ATTEND Internal Medicine
PROC: 4A033R1 Measurement of Arterial Saturation, Peripheral, Percutaneous Approach (ICD-10-PCS; 2016-12-18)
PROC: 0WUF0JZ Supplement Abdominal Wall with Synthetic Substitute, Open Approach (ICD-10-PCS; principal; 2016-12-19 15:45)
PROC: 30233N1 Transfusion of Nonautologous Red Blood Cells into Peripheral Vein, Percutaneous Approach (ICD-10-PCS; 2016-12-23)
DX: K43.0 Incisional hernia with obstruction, without gangrene (principal); E87.2 Acidosis; J98.2 Interstitial emphysema; Z90.13 Acquired absence of bilateral breasts and nipples; D64.9 Anemia, unspecified; R00.0 Tachycardia, unspecified; I10 Essential (primary) hypertension; E78.5 Hyperlipidemia, unspecified; F32.9 Major depressive disorder, single episode, unspecified; Y83.4 Other reconstructive surgery as the cause of abnormal reaction of the patient, or of later complication, without mention of misadventure at the time of the procedure

== ENCOUNTER 2017-04-08 20:50 | Emergency (ER) | payer OTHER ==
[~2017-04-08] VITALS: Ht 161.3 cm; Wt 96.8 kg
[~2017-04-08 20:50] MED LIST: ATOR40TA69 PO; LISI40TA PO; OXYC5TAB72 PO; PANT40TA3 PO; POLY17PO6 PO; PRD5T PO; VENL150T3 PO
[2017-04-08 20:59] VITALS: BP 130/72; PULSE 75; RESP 21; O2SAT 100
--- NOTE | 2017-04-08 21:14 | ED.REPORT ---
HPI-General Illness Date of Service Apr 08, 2017 ED Provider: López Ghotra MD Pt is a 66 year old female with a hx of breast cancer and hyperlipidemia presenting to the ED via EMS complaining of pain and bleeding from the surgical site in the RLQ of her abdomen onset at 1600 tonight. The dressing was last placed around 1800 tonight by medics. In early November she had a double mastectomy and then in late November she had a breast reconstruction surgery. 4 days ago she was at to have the second part of the reconstruction done, and then today the incision site started bleeding. She denies any other symptoms at this time. Nursing Notes Stated Complaint: LEAKING WOUND Chief Complaint: General Complaint Nursing Notes Reviewed: Yes Allergies: Coded Allergies: No Known Allergies (Unverified Allergy, Unknown, 09/05/14) Scheduled Atorvastatin Calcium (Atorvastatin Calcium) 40 Mg Tablet 20 MG PO HS Lisinopril (Lisinopril) 40 Mg Tablet 40 MG PO DAILY Pantoprazole DR (Pantoprazole DR) 40 Mg Tablet.dr 40 MG PO BID Polyethylene Glycol 3350 (Miralax) 17 Gm Powd.pack 17 GM PO DAILY Prednisone (PredniSONE) 5 Mg Tab 5 MG PO BID Venlafaxine ER (Venlafaxine ER) 150 Mg Tab.er.24 150 MG PO DAILY Scheduled PRN oxyCODONE (oxyCODONE) 5 Mg Tablet 10 MG PO QID PRN PRN For Pain oxyCODONE (oxyCODONE) 5 Mg Tablet 5-10 MG PO Q6H PRN PRN For Moderate Pain General Time Seen by MD: 21:07 Chief Complaint Other (Bleeding from surgical site) Hx Obtained From: Patient Arrived By: Ambulance Sudden in Onset?: Yes Onset Occurred: 5 - 8 hours ago Symptom Duration: Since onset Location: : Abdomen Quality: Painful Severity: Current: Severe Severity: Maximum: Severe Recent Healthcare: Recent hospitalization, Previous surgery Similar Sx Previous: No Past Medical History Past Medical History Breast cancer s/p double mastectomy Polymyalgia Reports: Hyperlipidemia Past Surgical History Bilateral meniscus repair on knees Shoulder and back surgery Double mastectomy Breast reconstructive surgery NADER Family History Mother had cancer Father had kidney disease Reports: Diabetes mellitus Smoking History Never Smoker Social History Alcohol Use: "Social" Occupation Patient is a [employer] Amb[employer] Status Independent Review of Systems Reports bleeding at surgical site Full Review of Systems Constitutional: Denies: Fever, Weakness - generalized Respiratory: Denies: Shortness of breath GI: Reports: Abdominal pain, Denies: Vomiting Complete sys rev & neg: except as marked. Physical Exam Vital Signs Vital Signs Date Time Temp Pulse Resp B/P Pulse Ox O2 Delivery O2 Flow Rate FiO2 04/09/17 01:01 36.2 104 19 162/98 97 Room Air 04/08/17 20:59 36.2 75 21 130/72 100 Room Air Initial VS: Reviewed, Vital signs normal General/Constitutional: Well-developed, Well-nourished Head / Eyes: Atraumatic, Normocephalic, PERRL ENT: Mucous membranes moist, Conjunctiva normal, No scleral icterus Neck: Supple, Non-tender, Full range of motion Respiratory: Breath sounds normal, Clear to auscultation, No respiratory distress Cardiovascular: Regular rate & rhythm, Heart sounds normal, Intact distal pulses Extremities: Vascular intact, Neuro intact, No swelling, No tenderness Neurologic: Alert, Oriented, Nonfocal Psychiatric: Mood/affect normal, Behavior normal, Normal thought content Abdomen: Atraumatic, No distention Tenderness/Guarding/Rebound: Positive: Tender RLQ... (Pain at surgical site) Fresh RLQ abbominal incision which is bleeding, medium- dark red blood. Not a definite fluid collection. No erythema or cellulitis. Interpretation & Diagnostics US Soft Tissue/Musculoskeletal IMPRESSION: Complex density noted at the site of surgical incision consistent with soft tissue hematoma. Phlegmon/developing abscess not excluded. This report was transmitted to the emergency room at 04/09/2017 - 12:50:49 AM PDT. Procedures The abdominal wound had partially descended testes and there is an underlying incisional hematoma. The area was anesthetized with 2% lidocaine with epinephrine. The remainder of the wound did not appear to be at risk for dehiscence. The hematoma was expressed and then suction. The hematoma cavity was irrigated. The area was packed with half-inch plain gauze. An absorbent dressing was placed followed by an abdominal wrap of 8 inch Mayank wrap. Subungual Hematoma Evac Time: 00:14 Re-Eval/Medical Decision Med Decision/Clinical Course 66-year-old female with breast reconstruction surgery formed a hematoma at the donor site in the abdomen. This case was discussed with Dr. Queen, [facility] plastic surgery service. The hematoma was evacuated and the wound was packed. She will follow up tomorrow in the emergency room here and then Monday with her surgeon at the [facility]. Time of Eval: 23:43 Patient Status: Condition improved Re-Evaluation/Progress Note: Discussed ultrasound results and plan for consultation with the contracts paralegal DrArvin Mcdowell at . Time of Eval: 00:11 Patient Status: Condition improved Re-Evaluation/Progress Note: Discussed consultation with Dr. Queen and plan to drain the hematoma. Pt understands and agrees. Performed hematoma evacuation. Pt tolerated procedure well. Discussed plan for discharge and follow up tomorrow. Consultation #1: Consulted With: Surgeon Call Returned at: 23:49 Note: Dr. Queen Plastic surgery from . He will call his attending and then call back. Consultation #2: Consulted With: Surgeon Call Returned at: 00:04 Note: Dr. Queen Plastic surgery from . Recommends that we remove the steri strips and drain the hematoma, pack it with gauze, and have her follow up in the clinic on Monday. Consultation #3: Consulted With: Surgeon Call Returned at: 00:42 Note: Dr. Queen Plastic surgery from . Discussed hematoma evacuation procedure Counseled Regarding: Diagnosis, Lab results, Need for follow-up, When/why to return to ED Discharge & Departure Primary Impression: Hematoma of abdominal wall Encounter type: initial encounter Qualified Code: S30.1XXA - Contusion of abdominal wall, initial encounter Additional Impression: External incisional dehiscence Disposition: Home Discharge Condition All VS Reviewed: Yes Condition: Improved Additional Instructions: Redress the outside bandage if it soaks through. Wear the compressive Mayank wrap consistently. Return to the ER tomorrow to recheck and repack the wound. Contact on-call Dr. Queen over the weekend if there are any problems. Follow up at on Monday. Referrals: OTHER,PHYSICIAN (PCP) (Family) Scribe Attestation Portions of this note were transcribed by Loyda Pena. I, Dr. Ghotra personally performed the history, physical exam and medical decision-making; I reviewed and confirmed the accuracy of the information in the transcribed note. Signed by: Serafin Johns, 04/09/2017 at 0100. López Ghotra MD Apr 08, 2017 21:14 LOYDA PENA Apr 08, 2017 21:23
[2017-04-09] MEDS ORDERED: Lidocaine 2%-Epi 1:100,000 20 mL Inj ONE (00:13)
[2017-04-09 01:01] VITALS: BP 162/98; PULSE 104; RESP 19; O2SAT 97
--- NOTE | 2017-04-09 08:53 | DRSVH ---
PROCEDURE: US ABDOMEN, LIMITED ([id number]) INDICATIONS: postop hematoma? TECHNIQUE: Real-time focused scanning was performed of the abdomen, with image documentation. COMPARISON: None. FINDINGS: There is a right hip incision. Underlying the incision is a complex hypoechoic focus measur ing 62 mm x 27 mm x 21 mm. IMPRESSION: Hematoma versus abscess underlying the incision. No percutaneously drainable fluid collec tion. Dictated by: Viet Appiah M.D. on 04/09/2017 at 8:50 Approved by: Viet Appiah M.D. on 04/09/2017 at 8:51
== END 2017-04-09 01:02 | disposition home or self-care (01) ==
LOC: SED 20:50
DX: S30.1XXA Contusion of abdominal wall, initial encounter (principal); T81.31XA Disruption of external operation (surgical) wound, not elsewhere classified, initial encounter; Y83.4 Other reconstructive surgery as the cause of abnormal reaction of the patient, or of later complication, without mention of misadventure at the time of the procedure; Y92.9 Unspecified place or not applicable; Y93.89 Activity, other specified; Y99.8 Other external cause status; E78.5 Hyperlipidemia, unspecified; Z90.13 Acquired absence of bilateral breasts and nipples; Z85.3 Personal history of malignant neoplasm of breast

== ENCOUNTER 2017-04-09 13:29 | Emergency (ER) | payer OTHER ==
[2017-04-09 13:36] VITALS: BP 136/72; PULSE 104; RESP 18; O2SAT 99
--- NOTE | 2017-04-09 14:12 | ED.REPORT ---
HPI-Rash / Abscess Date of Service Apr 09, 2017 ED Provider: Ashlyn Ko History of Present Illness: 66-year-old female here for a dressing change. She was seen last night for a bleeding wound. She had surgery on her right abdomen. Right flap of fat tissue was flipped internally and made into breast tissue. The wound started to bleed. There is no purulent drainage. Patient states last night the doctor suctioned up blood packed it and sealed back up. About 15 minutes after leaving here it started to bleed again. She replaced the outer bandage only. She has had the same outer bandage on all night and this minimally saturated. It is painful but this is not a new symptoms and no other new symptoms Nursing Notes Stated Complaint: DRESSING CHANGE Chief Complaint: General Complaint Allergies: Coded Allergies: No Known Allergies (Unverified Allergy, Unknown, 09/05/14) Scheduled Atorvastatin Calcium (Atorvastatin Calcium) 40 Mg Tablet 20 MG PO HS Lisinopril (Lisinopril) 40 Mg Tablet 40 MG PO DAILY Pantoprazole DR (Pantoprazole DR) 40 Mg Tablet.dr 40 MG PO BID Polyethylene Glycol 3350 (Miralax) 17 Gm Powd.pack 17 GM PO DAILY Prednisone (PredniSONE) 5 Mg Tab 5 MG PO BID Venlafaxine ER (Venlafaxine ER) 150 Mg Tab.er.24 150 MG PO DAILY Scheduled PRN oxyCODONE (oxyCODONE) 5 Mg Tablet 10 MG PO QID PRN PRN For Pain oxyCODONE (oxyCODONE) 5 Mg Tablet 5-10 MG PO Q6H PRN PRN For Moderate Pain General Time Seen by MD: 13:53 Chief Complaint Other (bleeding) Hx Obtained From: Patient Arrived By: Walk-in Onset Occurred: 2 days ago Symptom Duration: Intermittent Pertinent Negative: Pt denies other symptoms Recent Healthcare: Recent doctor visit Similar Sx Previous: Yes Past Medical History Past Medical History Breast cancer s/p double mastectomy Polymyalgia Reports: Hyperlipidemia Past Surgical History Bilateral meniscus repair on knees Shoulder and back surgery Double mastectomy Breast reconstructive surgery NADER Family History Mother had cancer Father had kidney disease Reports: Diabetes mellitus Smoking History Never Smoker Social History Alcohol Use: "Social" 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 Physical Exam Initial Vital Signs Vital Signs (First) Date Time Temp Pulse Resp B/P Pulse Ox O2 Delivery O2 Flow Rate FiO2 04/09/17 13:36 36.6 104 18 136/72 99 Room Air Initial VS: Reviewed, Vital signs normal General/Constitutional: Awake, Alert, Well appearing Skin: Color NL, No rash, Warm, Dry, Intact, Turgor NL, No swelling Rash / Lesion Notes: Surgical wound in the lower right abdomen. Saturated bloody gauze over the wound covered with Tegaderm. Internal gauze packing present as well and Steri-Strips are closing wound. Outer bandage is minimally saturated with blood. No purulent drainage Procedures Procedure Notes: Right lower abdomen- removed about 8 cm of internal gauze half-inch packing. Replaced about 8 cm of internal gauze average packing. Drainage noted. Teofilo with gauze, Tegaderm and an ABG on the top Re-Eval/Medical Decision Med Decision/Clinical Course Patient will call surgeon Discharge & Departure Shift Change Sign-Out Procedures: Results discussed Response to Therapy: Improved Impression: Primary Impression: Hematoma of abdominal wall Encounter type: subsequent encounter Qualified Code: S30.1XXD - Contusion of abdominal wall, subsequent encounter Disposition: Home Discharge Condition All VS Reviewed: Yes Condition: Stable Patient Instructions: Hematoma (ED) Additional Instructions: Keep dressing in place. Follow-up with your surgeon call for next available appointment tomorrow. Return if fevers or purulent drainage noted. Referrals: OTHER,PHYSICIAN (PCP) (Family) EDSupervising Provider for APC: Yuly Alejo MD, Linnea K ARNP Apr 09, 2017 14:12
[2017-04-09 15:02] VITALS: BP 133/85; PULSE 98; O2SAT 97
== END 2017-04-09 14:59 | disposition home or self-care (01) ==
LOC: SED 13:29
DX: S30.1XXD Contusion of abdominal wall, subsequent encounter (principal); Y84.8 Other medical procedures as the cause of abnormal reaction of the patient, or of later complication, without mention of misadventure at the time of the procedure; Y93.9 Activity, unspecified; Y92.9 Unspecified place or not applicable; E78.5 Hyperlipidemia, unspecified; Z85.3 Personal history of malignant neoplasm of breast